=== PATIENT | female | born 1955 | race Caucasian/White ===

== ENCOUNTER 2017-11-08 10:09 | Inpatient (IN) ==
--- NOTE | 2017-11-08 10:47 | Emergency Department Note ---
Disposition Clinical Impression: Acute blood loss anemia Anemia Qualifiers: Anemia type: other cause GI bleed Qualifiers: GI bleed type/associated pathology: unspecified gastrointestinal hemorrhage type Qualified Code(s): K92.2 - Gastrointestinal hemorrhage, unspecified Disposition: Still a Patient Condition: Fair General Adult HPI - General Chief complaint: ED Recheck/Abnormal Lab/Rx Stated complaint: "blood and iron is low" Time Seen by Provider: 11/08/17 10:35 - History of Present Illness HPI Narrative: 62 YO F here for iron deficiency anemia with history of PE and RA on immunosuppressant. Yesterday at her PCP iron was <10 mcg/dL and hemoglobin was 4.7. Diagnosed with iron deficiency anemia 5 years ago and was worked up with multiple colonoscopies and endoscopies, saw a rheumotologist. Cause of iron deficiency anemia never found. She cannot tolerate PO iron so she has periodic iron infusions. Denies blood in stool or hematuria. Feels weak with exertion. No fever, CP, diarrhea. States has dark stools. Is on leflunomide for RA and for it's blood thinning properities. Onset (ago): day(s) Pain Scale: 0 - Related Data Home Medications Medication Instructions Recorded Confirmed Ascorbic Acid [Vitamin C] 1,000 mg PO DAILY 06/10/15 11/08/17 Beclomethasone Diprop 80mcg [Qvar 2 puff IH DAILY 06/10/15 11/08/17 80 mcg] Calcium Carbonate/Vitamin D3 2 tab PO DAILY 06/10/15 11/08/17 [Calcium 500 + D Tablet] Cholecalciferol (Vitamin D3) 4,000 unit PO DAILY 06/10/15 11/08/17 [Vitamin D] Pediatric Multivitamin Comb#30 1 each PO DAILY 06/10/15 11/08/17 [Gummies Children Multivitamin] Fexofenadine/Pseudoephedrine 1 tab PO DAILY 12/16/15 11/08/17 [Annia-D 24 Hour Tablet] Fluticasone Propionate Nasal 1 spr NS DAILY 12/16/15 11/08/17 [Flonase] Leflunomide [Arava] 10 mg PO QDPC 10/08/16 11/08/17 Allergies Allergy/AdvReac Type Severity Reaction Status Date / Time ciprofloxacin [From Cipro] Allergy Rash Verified 12/03/16 09:45 levofloxacin [From Levaquin] Allergy Palpitation Verified 12/03/16 09:45 s All systems ED: reviewed and negative except as stated. Constitutional: Denies: fever, chills, weakness, weight change, night sweats Cardiovascular: Denies: chest pain, palpitations Respiratory: Denies: cough, dyspnea Gastrointestinal: Denies: abdominal pain, nausea, vomiting, diarrhea Genitourinary: Denies: urgency, dysuria, hematuria Musculoskeletal: Reports: arthralgia (has rhematoid arthitis on immunosuppressant) Endocrine: Reports: fatigue. Denies: heat or cold intolerance, polydipsia, polyuria Past Medical History - Social History Alcohol use: Reports: none Drug use: Reports: none Physical Exam - General Limitations: no limitations - Head Head exam: atraumatic, normocephalic - Eye Eye exam: Present: other (Skin pale conjunctiva) - Chest Chest inspection: Present: normal inspection, symmetric chest wall rise - Respiratory Respiratory exam: Present: normal lung sounds bilaterally. 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 Absent: black stool, bloody stool, fecal impaction, hemorrhoids, mass, tenderness - Neurological Exam Neurological exam: Present: alert, oriented X3 - Psychiatric Psychiatric exam: Present: normal affect, normal mood, depressed - Skin Skin exam: Present: warm, dry, pallor Course Course Narrative: 62 YO female with history of iron deficiency anemia with HgB 4.7 yesterday. Ordered type and cross and and give blood transfusion. Performed rectal exam and will submit FOBT. CBC and CMP ordered. - Reevaluation(s) Reevaluation #1: FOBT shows blood. Hgb today is 4.4. Dr. Medley spoke to Dr. Felipe - [place] to admit. Vital Signs Temperature 98.7 F 11/08/17 10:12 Pulse Rate 101 11/08/17 10:12 Respiratory Rate 20 11/08/17 10:12 Blood Pressure 156/76 11/08/17 10:12 O2 Sat by Pulse Oximetry 100 11/08/17 10:12 Temperature 99.2 F 11/08/17 20:59 Pulse Rate 78 11/08/17 20:59 Respiratory Rate 18 11/08/17 20:59 Blood Pressure 134/70 11/08/17 20:59 O2 Sat by Pulse Oximetry 100 11/08/17 18:28 Oxygen Delivery Oxygen Delivery Room Air Medical Decision Making - Lab Data Result diagrams: 11/08/17 17:53 11/08/17 10:53 Lab Results 11/08/17 11/08/17 11/08/17 Range/Units 10:53 10:53 10:53 WBC 4.7 (4.3-11.1) K/mcL RBC 2.02 L (3.82-4.97) M/mcL Hgb 4.4 L* (11.5-15.4) g/dL Hct 15.0 L* (35.3-44.9) % MCV 74.3 L (83.0-100.0) fL MCH 21.8 L (28.0-33.3) pg MCHC 29.3 L (31.6-35.5) g/dL RDW 16.6 H (11.5-14.5) % Plt Count 345 (140-400) K/mcL MPV 10.5 (9.4-12.4) fL Immature Gran % 0.2 (0-4) % Seg Neutrophils % 68.5 % Lymphocytes % 16.9 % Monocytes % 12.1 % Eosinophils % 1.9 % Basophils % 0.4 % Neutrophils # 3.2 (1.6-8.9) K/mcL Lymphocytes # 0.8 (0.6-4.6) K/mcL Monocytes # 0.6 (0.0-1.3) K/mcL Eosinophils # 0.1 (0.0-0.6) K/mcL Basophils # 0.0 (0.0-0.2) K/mcL PT 11.8 (9.4-12.1) Seconds INR 1.0 APTT 27.2 (26.0-36.0) Seconds Sodium 129 L (136-145) mEq/L Potassium 3.6 (3.5-5.1) mEq/L Chloride 106 (98-107) mEq/L Carbon Dioxide 25 (23-29) mEq/L BUN 11 (8-23) mg/dL Creatinine 0.43 L (0.60-1.20) mg/dL Est GFR ( Amer) > 60 (> 60) Est GFR (Non-Af Amer) > 60 (> 60) BUN/Creatinine Ratio 26 (6-26) Glucose 118 H (70-105) mg/dL Calculated Osmolality 268 L (280-300) Calcium 8.8 (8.6-10.3) mg/dL Iron 14 L (50-170) mcg/dL % Saturation 4 L (15-50) % Transferrin 279 (203-362) mg/dL Ferritin < 8 L (10-120) ng/mL Total Bilirubin 0.5 (0.3-1.0) mg/dL AST 23 (13-39) Units/L ALT 18 (7-52) Units/L Alkaline Phosphatase 67 (34-104) Units/L Serum Total Protein 6.4 (6.4-8.9) g/dL Albumin 3.6 (3.5-5.7) g/dL Globulin 2.8 (2.4-3.5) g/dL Albumin/Globulin Ratio 1.3 (1.1-2.2) Stool Occult Bld Scrn (Negative) Blood Type Antibody Screen Crossmatch 11/08/17 11/08/17 Range/Units 11:05 11:16 WBC (4.3-11.1) K/mcL RBC (3.82-4.97) M/mcL Hgb (11.5-15.4) g/dL Hct (35.3-44.9) % MCV (83.0-100.0) fL MCH (28.0-33.3) pg MCHC (31.6-35.5) g/dL RDW (11.5-14.5) % Plt Count (140-400) K/mcL MPV (9.4-12.4) fL Immature Gran % (0-4) % Seg Neutrophils % % Lymphocytes % % Monocytes % % Eosinophils % % Basophils % % Neutrophils # (1.6-8.9) K/mcL Lymphocytes # (0.6-4.6) K/mcL Monocytes # (0.0-1.3) K/mcL Eosinophils # (0.0-0.6) K/mcL Basophils # (0.0-0.2) K/mcL PT (9.4-12.1) Seconds INR APTT (26.0-36.0) Seconds Sodium (136-145) mEq/L Potassium (3.5-5.1) mEq/L Chloride (98-107) mEq/L Carbon Dioxide (23-29) mEq/L BUN (8-23) mg/dL Creatinine (0.60-1.20) mg/dL Est GFR ( Amer) (> 60) Est GFR (Non-Af Amer) (> 60) BUN/Creatinine Ratio (6-26) Glucose (70-105) mg/dL Calculated Osmolality (280-300) Calcium (8.6-10.3) mg/dL Iron (50-170) mcg/dL % Saturation (15-50) % Transferrin (203-362) mg/dL Ferritin (10-120) ng/mL Total Bilirubin (0.3-1.0) mg/dL AST (13-39) Units/L ALT (7-52) Units/L Alkaline Phosphatase (34-104) Units/L Serum Total Protein (6.4-8.9) g/dL Albumin (3.5-5.7) g/dL Globulin (2.4-3.5) g/dL Albumin/Globulin Ratio (1.1-2.2) Stool Occult Bld Scrn Positive A (Negative) Blood Type O POSITIVE Antibody Screen NEGATIVE Crossmatch See Detail
[2017-11-08 11:17] LABS: Basophils % 0.4 %; Mean Corpuscular HGB Conc 29.3 g/dL (31.6-35.5)
[2017-11-08 11:18] LABS: Eosinophils # 0.1 K/mcL (0.0-0.6); Eosinophils % 1.9 %; Immature Granulocytes % 0.2 % (0-4); Lymphocytes # 0.8 K/mcL (0.6-4.6); Lymphocytes % 16.9 %; Mean Corpuscular Hemoglobin 21.8 pg (28.0-33.3); Mean Corpuscular Volume 74.3 fL (83.0-100.0); Mean Platelet Volume 10.5 fL (9.4-12.4); Monocytes # 0.6 K/mcL (0.0-1.3); Monocytes % 12.1 %; Neutrophils # 3.2 K/mcL (1.6-8.9); Platelet Count 345 K/mcL (140-400); Red Blood Count 2.02 M/mcL (3.82-4.97); Red Cell Distribution Width 16.6 % (11.5-14.5); Segmented Neutrophils % 68.5 %
[2017-11-08 11:26] LABS: Alanine Aminotransferase 18 Units/L (7-52); Albumin 3.6 g/dL (3.5-5.7); Albumin/Globulin Ratio 1.3 (1.1-2.2); Alkaline Phosphatase 67 Units/L (34-104); Aspartate Amino Transferase 23 Units/L (13-39); BUN/Creatinine Ratio 26 (6-26); Bilirubin,Total 0.5 mg/dL (0.3-1.0); Blood Urea Nitrogen 11 mg/dL (8-23); Calcium 8.8 mg/dL (8.6-10.3); Carbon Dioxide 25 mEq/L (23-29); Chloride 106 mEq/L (98-107); Globulin 2.8 g/dL (2.4-3.5); Glucose 118 mg/dL (70-105); Osmolality,Calculated 268 (280-300); Potassium 3.6 mEq/L (3.5-5.1); Sodium 129 mEq/L (136-145); Total Protein 6.4 g/dL (6.4-8.9); eGFR For Non-African Americans > 60 (> 60)
[2017-11-08 11:31] LABS: Hemoglobin 4.4 g/dL (11.5-15.4)
[2017-11-08] MEDS ORDERED: Pantoprazole 40 MG VIAL IVP ONE (11:34)
--- NOTE | 2017-11-08 11:44 | Emergency Department Note ---
Disposition Clinical Impression: Anemia, GI bleed Disposition: Still a Patient Condition: Fair Referrals: Trevor Christopher MD [Primary Care Provider] - Forms: ED Satisfaction Letter General Adult HPI - General Chief complaint: ED Recheck/Abnormal Lab/Rx Stated complaint: "blood and iron is low" Time Seen by Provider: 11/08/17 10:35 Source: patient Limitations: no limitations - History of Present Illness Pain Scale: 0 - Related Data Home Medications Medication Instructions Recorded Confirmed Ascorbic Acid [Vitamin C] 1,000 mg PO DAILY 06/10/15 11/08/17 Beclomethasone Diprop 80mcg [Qvar 2 puff IH DAILY 06/10/15 11/08/17 80 mcg] Calcium Carbonate/Vitamin D3 2 tab PO DAILY 06/10/15 11/08/17 [Calcium 500 + D Tablet] Cholecalciferol (Vitamin D3) 4,000 unit PO DAILY 06/10/15 11/08/17 [Vitamin D] Pediatric Multivitamin Comb#30 1 each PO DAILY 06/10/15 11/08/17 [Gummies Children Multivitamin] Fexofenadine/Pseudoephedrine 1 tab PO DAILY 12/16/15 11/08/17 [Annia-D 24 Hour Tablet] Fluticasone Propionate Nasal 1 spr NS DAILY 12/16/15 11/08/17 [Flonase] Leflunomide [Arava] 10 mg PO QDPC 10/08/16 11/08/17 Allergies Allergy/AdvReac Type Severity Reaction Status Date / Time ciprofloxacin [From Cipro] Allergy Rash Verified 12/03/16 09:45 levofloxacin [From Levaquin] Allergy Palpitation Verified 12/03/16 09:45 s Constitutional: Denies: fever, chills, weakness, weight change, night sweats Cardiovascular: Denies: chest pain, palpitations Respiratory: Denies: cough, dyspnea Gastrointestinal: Denies: abdominal pain, nausea, vomiting, diarrhea Genitourinary: Denies: urgency, dysuria, hematuria Musculoskeletal: Reports: arthralgia (has rhematoid arthitis on immunosuppressant) Endocrine: Reports: fatigue. Denies: heat or cold intolerance, polydipsia, polyuria Past Medical History - Past Medical History Medical history: Reports: arthritis, asthma, other Psychiatric history: Reports: no psych history SPRIGGER history: Reports: no SPRIGGER history - Social History Smoking Status: Never smoker Smokeless Tobacco Status: No Alcohol use: Reports: none Drug use: Reports: none Physical Exam - General Limitations: no limitations General appearance: alert, in no apparent distress Course Vital Signs Temperature 98.7 F 11/08/17 10:12 Pulse Rate 101 11/08/17 10:12 Respiratory Rate 20 11/08/17 10:12 Blood Pressure 156/76 11/08/17 10:12 O2 Sat by Pulse Oximetry 100 11/08/17 10:12 Temperature 99.4 F 11/08/17 12:26 Pulse Rate 79 11/08/17 13:10 Respiratory Rate 22 11/08/17 13:10 Blood Pressure 134/56 11/08/17 13:10 O2 Sat by Pulse Oximetry 98 11/08/17 13:10 Oxygen Delivery Oxygen Delivery Room Air Medical Decision Making - Lab Data Result diagrams: 11/08/17 10:53 11/08/17 10:53 Lab Results 11/08/17 11/08/17 11/08/17 Range/Units 10:53 10:53 10:53 WBC 4.7 (4.3-11.1) K/mcL RBC 2.02 L (3.82-4.97) M/mcL Hgb 4.4 L* (11.5-15.4) g/dL Hct 15.0 L* (35.3-44.9) % MCV 74.3 L (83.0-100.0) fL MCH 21.8 L (28.0-33.3) pg MCHC 29.3 L (31.6-35.5) g/dL RDW 16.6 H (11.5-14.5) % Plt Count 345 (140-400) K/mcL MPV 10.5 (9.4-12.4) fL Immature Gran % 0.2 (0-4) % Seg Neutrophils % 68.5 % Lymphocytes % 16.9 % Monocytes % 12.1 % Eosinophils % 1.9 % Basophils % 0.4 % Neutrophils # 3.2 (1.6-8.9) K/mcL Lymphocytes # 0.8 (0.6-4.6) K/mcL Monocytes # 0.6 (0.0-1.3) K/mcL Eosinophils # 0.1 (0.0-0.6) K/mcL Basophils # 0.0 (0.0-0.2) K/mcL PT 11.8 (9.4-12.1) Seconds INR 1.0 APTT 27.2 (26.0-36.0) Seconds Sodium 129 L (136-145) mEq/L Potassium 3.6 (3.5-5.1) mEq/L Chloride 106 (98-107) mEq/L Carbon Dioxide 25 (23-29) mEq/L BUN 11 (8-23) mg/dL Creatinine 0.43 L (0.60-1.20) mg/dL Est GFR ( Amer) > 60 (> 60) Est GFR (Non-Af Amer) > 60 (> 60) BUN/Creatinine Ratio 26 (6-26) Glucose 118 H (70-105) mg/dL Calculated Osmolality 268 L (280-300) Calcium 8.8 (8.6-10.3) mg/dL Iron 14 L (50-170) mcg/dL % Saturation 4 L (15-50) % Transferrin 279 (203-362) mg/dL Total Bilirubin 0.5 (0.3-1.0) mg/dL AST 23 (13-39) Units/L ALT 18 (7-52) Units/L Alkaline Phosphatase 67 (34-104) Units/L Serum Total Protein 6.4 (6.4-8.9) g/dL Albumin 3.6 (3.5-5.7) g/dL Globulin 2.8 (2.4-3.5) g/dL Albumin/Globulin Ratio 1.3 (1.1-2.2) Stool Occult Bld Scrn (Negative) Blood Type Antibody Screen Crossmatch 11/08/17 11/08/17 Range/Units 11:05 11:16 WBC (4.3-11.1) K/mcL RBC (3.82-4.97) M/mcL Hgb (11.5-15.4) g/dL Hct (35.3-44.9) % MCV (83.0-100.0) fL MCH (28.0-33.3) pg MCHC (31.6-35.5) g/dL RDW (11.5-14.5) % Plt Count (140-400) K/mcL MPV (9.4-12.4) fL Immature Gran % (0-4) % Seg Neutrophils % % Lymphocytes % % Monocytes % % Eosinophils % % Basophils % % Neutrophils # (1.6-8.9) K/mcL Lymphocytes # (0.6-4.6) K/mcL Monocytes # (0.0-1.3) K/mcL Eosinophils # (0.0-0.6) K/mcL Basophils # (0.0-0.2) K/mcL PT (9.4-12.1) Seconds INR APTT (26.0-36.0) Seconds Sodium (136-145) mEq/L Potassium (3.5-5.1) mEq/L Chloride (98-107) mEq/L Carbon Dioxide (23-29) mEq/L BUN (8-23) mg/dL Creatinine (0.60-1.20) mg/dL Est GFR ( Amer) (> 60) Est GFR (Non-Af Amer) (> 60) BUN/Creatinine Ratio (6-26) Glucose (70-105) mg/dL Calculated Osmolality (280-300) Calcium (8.6-10.3) mg/dL Iron (50-170) mcg/dL % Saturation (15-50) % Transferrin (203-362) mg/dL Total Bilirubin (0.3-1.0) mg/dL AST (13-39) Units/L ALT (7-52) Units/L Alkaline Phosphatase (34-104) Units/L Serum Total Protein (6.4-8.9) g/dL Albumin (3.5-5.7) g/dL Globulin (2.4-3.5) g/dL Albumin/Globulin Ratio (1.1-2.2) Stool Occult Bld Scrn Positive A (Negative) Blood Type O POSITIVE Antibody Screen NEGATIVE Crossmatch See Detail Critical Care Time Critical Care Time: Yes Total Critical Care Time: 45 Attestation: Critical care performed: Time is exclusive of separately billable procedures. Time includes: direct patient care, patient reassessment, coordination of patient care, interpretation of data (laboratory data, radiology data, and respiratory data), review of patient's medical records, medical consultation and documentation of patient care. Procedures included in critical care time: Procedures excluded from critical care time: Attestation Statement - Attestation Attestation: I examined this patient and my medical decision-making was reviewed with the Resident Physician. I agree with the documented findings, disposition and treatment plan as described except to the extent set forth below. Patient presents to the ED with a chief complaint of low hemoglobin. Patient had outpatient lab studies done that showed a hemoglobin of 4 and she was called to come to the ED. Patient arrives requesting iron transfusion. Patient states she has a history of the same. She has had multiple scopes the last of which was in 2013. They have never shown anything. Admits to dark tarry stool. Denies any bright red blood. Denies any epigastric pain. Denies any history of ulcers. Patient states she used to be on Xarelto which she is not taking it as one of her rheumatoid medications also acts as a blood thinner. (Leflunomide). On examination she is pale. Sitting up in bed reading a book in no distress. Her abdomen is soft, nontender. Rectal exam showed dark stool. Plan. Hemoccult is positive. He will go was 4.4. Starting transfusion at this time. Starting Protonix. Patient with no abdominal pain. Patient does not need any abdominal imaging at this time. On reexamination she denies any history of liver disease. No history of hepatitis. Denies any alcohol consumption. Patient will be admitted following transfusion. Consultation call to Dr. Felipe for endoscopy. Will admit to medicine. Dr Carlos accepts for admission 1214 CT reviewed. INR 1. Abdomen/Pelvis CT 11/08/17 11:54 IMPRESSION: Bilateral nephrolithiasis without evidence for urinary obstruction or hydronephrosis. Focal hyperdense nodule either abutting or arising from the left collecting system/ureter measuring 2.5 x 1.4 cm. Further evaluation with CT urogram or renal protocol MRI is suggested. Multiple low-attenuation hepatic and renal lesions are most compatible with cysts. D/ / Magdy Ordaz MD / Magdy Ordaz MD Interpreting Provider: Magdy Ordaz MD
[2017-11-08 12:07] LABS: Prothrombin Time 11.8 Seconds (9.4-12.1)
[2017-11-08] MEDS ORDERED: 0.9 % Sodium Chloride 500 ML ONE (12:09)
[2017-11-08 12:10] LABS: Activated Partial Thrombo Time 27.2 Seconds (26.0-36.0)
[2017-11-08] MEDS ORDERED: Naloxone 0.4 MG/ML INJ IVP PRN (12:15)
--- NOTE | 2017-11-08 13:00 | Internal Med History&Physical ---
Date of Encounter: 11/08/17 Time of Encounter: 12:30 Internal Medicine - H&P: HPI Chief complaint: dark stools , referred from PCP for low blood count History of present illness: Ms. Morataya is a 62 year old female with pmh of ovarian cancer, pulmonary emboli for which she was previously on xarelto, rheumatoid arthritis, past history of GI bleed presenting with complaints of I was sent to the ER by my PCP because my blood count was low. Patient notes over the last couple of weeks , she has been having dark stools intermittently, and this was followed by easy fatigability and shortness of breath as well as a craving for vegetables, which she says is typical of being anemic for her. She therefore decided to go to her PCP to get her blood count checked. She seh was told her blood count was low and she was instructed to come to the ER. She denies any nausea, vomiting, abdominal pain or any other acute symptoms. In the ER hemoglobin was noted to be 4.4 and she was given one dose of protonix 40mg IV and is being transfused 2 units PRBC. Surgery (Dr lynch) has also been consulted for endoscopy Past Med Surg Social Fam HX - Past Medical History Medical history: arthritis, asthma, other Additional medical history: anemia Psychiatric history: no psych history - Social History Smoking Status: Never smoker Smokeless Tobacco Status: No Alcohol use: none Drug use: none Internal Medicine - H&P: Meds Ascorbic Acid [Vitamin C] 1,000 mg PO DAILY 06/10/15 [History] Beclomethasone Diprop 80mcg [Qvar 80 mcg] 2 puff IH DAILY 06/10/15 [History] Calcium Carbonate/Vitamin D3 [Calcium 500 + D Tablet] 2 tab PO DAILY 06/10/15 [ History] Cholecalciferol (Vitamin D3) [Vitamin D] 4,000 unit PO DAILY 06/10/15 [History] Pediatric Multivitamin Comb#30 [Gummies Children Multivitamin] 1 each PO DAILY 06/10/15 [History] Fexofenadine/Pseudoephedrine [Annia-D 24 Hour Tablet] 1 tab PO DAILY 12/16/15 [History] Fluticasone Propionate Nasal [Flonase] 1 spr NS DAILY 12/16/15 [History] Leflunomide [Arava] 10 mg PO QDPC 10/08/16 [History] 3 Allergy/AdvReac Type Severity Reaction Status Date / Time ciprofloxacin [From Cipro] Allergy Rash Verified 12/03/16 09:45 levofloxacin [From Levaquin] Allergy Palpitation Verified 12/03/16 09:45 s All Systems PM: A 10-system review of systems was performed and is negative for pertinent findings except as documented above in the HPI. - Constitutional Constitutional: as per HPI, fatigue, lethargy, malaise, no chills, no fever(s), no night sweats - EENT Eyes: no change in vision, no discharge, no pain, no photophobia Ears: no ear discharge, no ear pain, no tinnitus Nose, mouth and throat: no dysphagia, no nasal discharge, no neck pain, no sore throat - Cardiovascular Cardiovascular ROS IM: dyspnea, no chest pain, no diaphoresis, no lightheadedness, no palpitations, no syncope - Respiratory Respiratory: dyspnea, dyspnea on exertion, no cough, no wheezing, no excessive phlegm production - Gastrointestinal Gastrointestinal: melena, no abdominal pain, no diarrhea, no hematemesis, no hematochezia, no nausea, no vomiting - Genitourinary Genitourinary: no change in urinary stream, no dysuria, no flank pain, no hematuria - Musculoskeletal Musculoskeletal ROS IM: no numbness, no tingling - Integumentary Integumentary IM: no rash, no unusual bruising - Neurological Neurological ROS: no confusion, no convulsions, no focal weakness, no numbness, no tingling, no tremor(s) - Hematologic/Lymphatic Hematologic/Lymphatic: no easy bruising - Constitutional Vitals: Temp Pulse Resp BP Pulse Ox 99.4 F 81 22 134/67 96 11/08/17 12:26 11/08/17 12:26 11/08/17 12:26 11/08/17 12:26 11/08/17 12:20 Exam: NAD - Head Head exam: Present: atraumatic, normocephalic - Eye Eye exam: Present: PERRL, conjuntiva pink, sclera anicteric Pupils: Present: PERRL - Neck Neck exam general surgery: Present: supple, trachea midline. Absent: lymphadenopathy - Respiratory Respiratory exam: Present: CTAB. Absent: accessory muscle use, rales, rhonchi, wheezes - Cardiovascular Cardiovascular exam: Present: RRR, +S1, +S2. Absent: diastolic murmur, gallop, rubs, systolic murmur - GI/Abdominal GI/Abdominal exam: Present: normal bowel sounds, soft, no peritoneal signs. Absent: distended, tenderness - Extremities Exam Extremities exam: Present: warm, radial pulses palpable and symmetrical. Absent : calf tenderness, cyanotic, pedal edema - Neurological Exam Neurological exam: Present: CN II-XII intact, oriented X3, no focal deficits. Absent: pronater drift, facial droop, speech deficit - Skin Skin exam: Present: dry, intact Internal Med - H&P Results - Labs CBC & Chem 7: 11/08/17 17:53 11/08/17 10:53 Labs: Short CBC 11/08/17 Range/Units 10:53 WBC 4.7 (4.3-11.1) K/mcL Hgb 4.4 L* (11.5-15.4) g/dL Hct 15.0 L* (35.3-44.9) % Plt Count 345 (140-400) K/mcL Neutrophils # 3.2 (1.6-8.9) K/mcL BMP 11/08/17 10:53 Sodium 129 L Potassium 3.6 Chloride 106 Carbon Dioxide 25 BUN 11 Creatinine 0.43 L Glucose 118 H Calcium 8.8 Liver Function 11/08/17 Range/Units 10:53 Total Bilirubin 0.5 (0.3-1.0) mg/dL AST 23 (13-39) Units/L ALT 18 (7-52) Units/L Alkaline Phosphatase 67 (34-104) Units/L Albumin 3.6 (3.5-5.7) g/dL - Assessment and plan (1) Acute GI bleeding Current Visit: Yes Status: Acute Assessment and plan: Pt has had dark stools intermittently for a couple of months now. Stool occult blood positive. Likely 2/2 to acute upper GI bleed. Denies being on NSAIDS or blood thinners. Still uses xarelto occasionally as travel prophylaxis (due to history of PE) but reports her last use was in August INR WNL. Will transfuse 4 units of PRBC. Receiving 2 in the ER. Follow up iron studies Started on protonix drip. CBC q8hrs, IV fluids (2) Symptomatic anemia Current Visit: Yes Status: Acute Assessment and plan: Symptomatic anemia likely from acute blood loss with iron deficiency Follow up iron profile. Transfure 4 unit PRBC. monitor CBC (3) Ovarian cancer Current Visit: Yes Status: Acute Assessment and plan: Stable Qualifiers: Laterality: unspecified laterality Qualified Code(s): C56.9 - Malignant neoplasm of unspecified ovary (4) Hyponatremia Current Visit: Yes Status: Acute Assessment and plan: Will give IV fluids with normal saline (5) Rheumatoid arthritis Current Visit: Yes Status: Acute Assessment and plan: Continue leflunomide Qualifiers: Qualified Code(s): M06.9 - Rheumatoid arthritis, unspecified (6) DVT prophylaxis Current Visit: Yes Status: Acute Assessment and plan: scds - Time Spent With Patient Total time spent is greater than 50% in coordination of care (as documented) at patient's floor/unit and/or counseling patient:
[2017-11-08 13:07] LABS: % Iron Saturation 4 % (15-50); Iron 14 mcg/dL (50-170); Transferrin 279 mg/dL (203-362)
[2017-11-08 13:49] LABS: Ferritin < 8 ng/mL (10-120)
[2017-11-08] MEDS ORDERED: 0.9 % Sodium Chloride 250 ML ONE ×3 (14:46→22:31)
[2017-11-08] MEDS: 0.9 % Sodium Chloride 1,000 ML IVC SCH (16:18)
[2017-11-08] MEDS: Pantoprazole 40 MG in 0.9 % Sodium Chloride Mini Bag 100 ML IVC SCH ×2 (16:18→21:26)
[2017-11-08 18:32] LABS: Basophils % 0.8 %; Eosinophils # 0.2 K/mcL (0.0-0.6); Immature Granulocytes % 0.2 % (0-4); Lymphocytes # 1.4 K/mcL (0.6-4.6); Lymphocytes % 27.7 %; Mean Corpuscular Hemoglobin 24.1 pg (28.0-33.3); Mean Corpuscular Volume 77.8 fL (83.0-100.0); Mean Platelet Volume 10.9 fL (9.4-12.4); Monocytes # 0.7 K/mcL (0.0-1.3); Monocytes % 13.3 %; Neutrophils # 2.8 K/mcL (1.6-8.9); Platelet Count 328 K/mcL (140-400); Red Blood Count 2.57 M/mcL (3.82-4.97); Red Cell Distribution Width 17.4 % (11.5-14.5)
[2017-11-08 18:33] LABS: Hemoglobin 6.2 g/dL (11.5-15.4)
[2017-11-09 00:44] LABS: Basophils # 0.1 K/mcL (0.0-0.2); Basophils % 1.1 %; Eosinophils # 0.3 K/mcL (0.0-0.6); Eosinophils % 4.8 %; Hematocrit 23.2 % (35.3-44.9); Hemoglobin 7.4 g/dL (11.5-15.4); Immature Granulocytes % 0.4 % (0-4); Lymphocytes # 1.3 K/mcL (0.6-4.6); Lymphocytes % 23.5 %; Mean Corpuscular HGB Conc 31.9 g/dL (31.6-35.5); Mean Corpuscular Hemoglobin 25.4 pg (28.0-33.3); Mean Corpuscular Volume 79.7 fL (83.0-100.0); Mean Platelet Volume 10.8 fL (9.4-12.4); Monocytes # 0.7 K/mcL (0.0-1.3); Monocytes % 12.5 %; Neutrophils # 3.1 K/mcL (1.6-8.9); Platelet Count 287 K/mcL (140-400); Red Blood Count 2.91 M/mcL (3.82-4.97); Red Cell Distribution Width 17.8 % (11.5-14.5); Segmented Neutrophils % 57.7 %
[2017-11-09 00:49] LABS: INR 1.1; Prothrombin Time 12.7 Seconds (9.4-12.1)
[2017-11-09 00:55] LABS: Blood Urea Nitrogen 10 mg/dL (8-23); Carbon Dioxide 26 mEq/L (23-29); Chloride 107 mEq/L (98-107); Potassium 3.7 mEq/L (3.5-5.1); Sodium 136 mEq/L (136-145)
[2017-11-09 00:56] LABS: BUN/Creatinine Ratio 27 (6-26); Calcium 8.4 mg/dL (8.6-10.3); Glucose 101 mg/dL (70-105); Osmolality,Calculated 281 (280-300); Phosphorous 3.1 mg/dL (2.7-4.5); eGFR For Non-African Americans > 60 (> 60)
[2017-11-09] MEDS: Pantoprazole 40 MG in 0.9 % Sodium Chloride Mini Bag 100 ML IVC SCH (02:47)
[2017-11-09] MEDS: 0.9 % Sodium Chloride 1,000 ML IVC SCH (06:36)
[2017-11-09] MEDS: Beclomethasone 80mcg MDI IH SCH (08:01)
[2017-11-09 08:32] LABS: Basophils # 0.1 K/mcL (0.0-0.2); Basophils % 1.1 %; Eosinophils # 0.2 K/mcL (0.0-0.6); Eosinophils % 3.6 %; Hematocrit 23.3 % (35.3-44.9); Hemoglobin 7.5 g/dL (11.5-15.4); Immature Granulocytes % 0.4 % (0-4); Lymphocytes # 0.9 K/mcL (0.6-4.6); Lymphocytes % 16.2 %; Mean Corpuscular HGB Conc 32.2 g/dL (31.6-35.5); Mean Corpuscular Hemoglobin 25.1 pg (28.0-33.3); Mean Corpuscular Volume 77.9 fL (83.0-100.0); Mean Platelet Volume 10.9 fL (9.4-12.4); Monocytes # 0.6 K/mcL (0.0-1.3); Monocytes % 10.8 %; Neutrophils # 3.8 K/mcL (1.6-8.9); Platelet Count 307 K/mcL (140-400); Red Blood Count 2.99 M/mcL (3.82-4.97); Red Cell Distribution Width 17.6 % (11.5-14.5); Segmented Neutrophils % 67.9 %
--- NOTE | 2017-11-09 13:17 | Internal Med Progress Note ---
Hospitalist Progress Note - Encounter Date of Encounter: 11/09/17 Time of Encounter: 13:17 - Subjective Interval History: Patient seen and examined at bedside. Patient had no acute events overnight. Patient received 4 units of packed red blood cells.. Patient states that she is feeling fine but never really felt that bad. Patient was only exercising shortness of breath with exertion for the past 2 weeks and denies any melena, hematochezia, nausea. Patient has been taking NSAIDs occasionally recently. Patient states that she has had many upper endoscopies and colonoscopies and capsule studies and has never found any source of bleeding. Currently the patient states she feels fine and she is just thirsty. Patient states that her pulmonary emboli were years ago and has been off xarelto and any blood thinners since August 2016. - Exam Vitals: Temp Pulse Resp BP Pulse Ox 98.8 F 78 18 147/78 96 11/09/17 11:36 11/09/17 11:36 11/09/17 11:36 11/09/17 11:36 11/09/17 11:36 Exam: Constitutional: No acute distress, Alert Psych: AAO x 3 HEENT: NCAT, EOMI, conjunctiva with no significant pallor Neck: supple, no JVD Cardio: regular rate and rhythm, +s1s2, no murmurs/rubs/gallops, no JVD Resp: clear to ascultation bilaterally, no wheezes/rales/ronchi Abd: soft, non tender/non distended, positive bowel sounds, no gaurding/reboud/ ridgitity Extremities: Significant lower extremity edema that is chronic. Neuro: no focal deficits appreciated - Assessment and Plan (1) Symptomatic anemia Current Visit: Yes Status: Acute Assessment and Plan: Symptomatic anemia likely from chronic blood loss with iron deficiency -Iron studies consistent with severe iron deficiency -Has had many negative upper endoscopies and colonoscopies and capsule studies. -Status post 4 units transfusion the PRBCs -Patient no longer having shortness of breath -Trend hemoglobin -If hemoglobin at 1 PM stable will start clear liquid diet -surgery consulted for evaluation for endoscopy (2) Acute GI bleeding Current Visit: Yes Status: Acute Assessment and Plan: Pt has had dark stools intermittently for a couple of months now. Stool occult blood positive. -Likely 2/2 to acute upper GI bleed. -occasional NSAIDS recentlyor blood thinners -INR WNL. -s/p 4 units of PRBC. -iron studies with significant iron deficency -change protonix gtt to bid -cbc trending -hemoglobin improving up to 7.5 and no longer sob -Many negative workups for GI bleeding -Due to receiving 4 units of packed red blood cells will likely wait on IV iron infusion for at least 24-48 hours (3) Ovarian cancer Current Visit: Yes Status: Acute Assessment and Plan: -Stable -per hx in 1980s (4) Hyponatremia Current Visit: Yes Status: Acute Assessment and Plan: -resolved with IVF (5) Rheumatoid arthritis Current Visit: Yes Status: Acute Assessment and Plan: Continue leflunomide (6) DVT prophylaxis Current Visit: Yes Status: Acute Assessment and Plan: scds - Summary of Assessment and Plan Summary of Assessment and Plan: SCDs - Time Spent with Patient Total time spent is greater than 50% in coordination of care (as documented) at patient's floor/unit and/or counseling patient: 25 - 35 minutes Plan of Care Discussed with: patient Internal Medicine: Result - Labs CBC & Chem 7: 11/09/17 08:07 11/09/17 00:25 Labs: Short CBC 11/08/17 11/09/17 11/09/17 Range/Units 17:53 00:25 08:07 WBC 5.0 5.4 5.6 (4.3-11.1) K/mcL Hgb 6.2 L D 7.4 L 7.5 L (11.5-15.4) g/dL Hct 20.0 L 23.2 L 23.3 L (35.3-44.9) % Plt Count 328 287 307 (140-400) K/mcL Neutrophils # 2.8 3.1 3.8 (1.6-8.9) K/mcL BMP 11/09/17 00:25 Sodium 136 Potassium 3.7 Chloride 107 Carbon Dioxide 26 BUN 10 Creatinine 0.37 L Glucose 101 Calcium 8.4 L - ABG Interpretation ABG results: PT/INR, D-dimer PT 12.7 Seconds (9.4-12.1) H 11/09/17 00:25 Consult Discharge Plan - Plan Referrals: Trevor Christopher MD [Primary Care Provider] - (3) Ovarian cancer Qualifiers: Laterality: unspecified laterality Qualified Code(s): C56.9 - Malignant neoplasm of unspecified ovary (5) Rheumatoid arthritis Qualifiers: Rheumatoid arthritis location: unspecified site
[2017-11-09 14:12] LABS: Hematocrit 24.3 % (35.3-44.9); Hemoglobin 7.8 g/dL (11.5-15.4)
--- NOTE | 2017-11-09 15:21 | General Surgery Consult Note ---
Date of Encounter: 11/09/17 Time of Encounter: 15:10 History of Present Illness Reason for consult: other (recurrent anemia) Requesting physician: Ayaka Valero See History of present illness: General Surgery - Delayed dictation 62-year-old female referred for further evaluation to General surgery / GI hemorrhage coverage after presenting to the [facility] ED with recurrent anemia. Blood drawn yesterday demonstrated hemoglobin of 4.7 and iron less than 10 mcg/ dL. The patient was instructed to present to the emergency department for further evaluation/treatment/admission. The patient has described recurrent anemia for which she has undergone repeated upper endoscopies and colonoscopies. (5). Available data from EGD/colonoscopy completed approximately 2 years ago [facility] with no findings to explain her anemia. The patient is not willing to repeat endoscopic evaluation at this time. On presentation to the emergency department, hemoglobin was 4.4, hematocrit 15.4 ; Platelet count 345,000. The patient has since been admitted, transfused with most recent H&H 7.8 / 24.3. It should be noted that platelet count, differential, PT/INR of all remained within normal limits. Sodium is notable low on admission 129 but has corrected to 136, BUN ranging 11-10, creatinine also within normal limits at 0.43 - 0.37. 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 Rheumatoid arthritis and asthma; prior history PE Physical examination is unremarkable except for Hemoccult positive stool Impression recurrent profound anemia of uncertain etiology. It appears to be an anemia of chronic disease as extensive evaluation in the past has failed to demonstrate a specific etiology. The patient's recurrent anemia may be related to her history of mild to poorly differentiated serous cystadenoma/ovarian neoplasm which was treated with chemotherapy with resultant malfunction of her bone marrow. I have discussed this patient's care with Dr Viveros. I am willing to follow along with dodie. No diagnostics (EGD or colonoscopy) planned at this time. Past Med Surg Social Fam HX - Past Medical History Medical history: arthritis, asthma, other Additional medical history: anemia Psychiatric history: no psych history - Social History Smoking Status: Never smoker Smokeless Tobacco Status: No Alcohol use: none Drug use: none Medications and Allergies Ascorbic Acid [Vitamin C] 1,000 mg PO DAILY 06/10/15 [History] Beclomethasone Diprop 80mcg [Qvar 80 mcg] 2 puff IH DAILY 06/10/15 [History] Calcium Carbonate/Vitamin D3 [Calcium 500 + D Tablet] 2 tab PO DAILY 06/10/15 [ History] Cholecalciferol (Vitamin D3) [Vitamin D] 4,000 unit PO DAILY 06/10/15 [History] Pediatric Multivitamin Comb#30 [Gummies Children Multivitamin] 1 each PO DAILY 06/10/15 [History] Fexofenadine/Pseudoephedrine [Annia-D 24 Hour Tablet] 1 tab PO DAILY 12/16/15 [History] Fluticasone Propionate Nasal [Flonase] 1 spr NS DAILY 12/16/15 [History] Leflunomide [Arava] 10 mg PO QDPC 10/08/16 [History] 3 Allergy/AdvReac Type Severity Reaction Status Date / Time ciprofloxacin [From Cipro] Allergy Rash Verified 12/03/16 09:45 levofloxacin [From Levaquin] Allergy Palpitation Verified 12/03/16 09:45 s Review of Systems All systems PM: The remainder of the systems were reviewed and are negative General Surgery Exam Initial Vital Signs Temp Pulse Resp BP Pulse Ox 98.7 F 101 20 156/76 100 11/08/17 10:12 11/08/17 10:12 11/08/17 10:12 11/08/17 10:12 11/08/17 10:12 Exam Initial Vital Signs Temp Pulse Resp BP Pulse Ox 98.7 F 101 20 156/76 100 11/08/17 10:12 11/08/17 10:12 11/08/17 10:12 11/08/17 10:12 11/08/17 10:12 Results - Labs 11/09/17 13:51 11/09/17 00:25 Abnormal lab results RBC 2.99 M/mcL (3.82-4.97) L 11/09/17 08:07 Hgb 7.8 g/dL (11.5-15.4) L 11/09/17 13:51 Hct 24.3 % (35.3-44.9) L 11/09/17 13:51 MCV 77.9 fL (83.0-100.0) L 11/09/17 08:07 MCH 25.1 pg (28.0-33.3) L 11/09/17 08:07 RDW 17.6 % (11.5-14.5) H 11/09/17 08:07 PT 12.7 Seconds (9.4-12.1) H 11/09/17 00:25 Creatinine 0.37 mg/dL (0.60-1.20) L 11/09/17 00:25 BUN/Creatinine Ratio 27 (6-26) H 11/09/17 00:25 Calcium 8.4 mg/dL (8.6-10.3) L 11/09/17 00:25 Iron 14 mcg/dL (50-170) L 11/08/17 10:53 % Saturation 4 % (15-50) L 11/08/17 10:53 Ferritin < 8 ng/mL (10-120) L 11/08/17 10:53 Stool Occult Bld Scrn Positive (Negative) A 11/08/17 11:16 Diabetes panel 11/09/17 Range/Units 00:25 Sodium 136 (136-145) mEq/L Potassium 3.7 (3.5-5.1) mEq/L Chloride 107 (98-107) mEq/L Carbon Dioxide 26 (23-29) mEq/L BUN 10 (8-23) mg/dL Creatinine 0.37 L (0.60-1.20) mg/dL Glucose 101 (70-105) mg/dL Calcium 8.4 L (8.6-10.3) mg/dL Calcium panel 11/09/17 Range/Units 00:25 Calcium 8.4 L (8.6-10.3) mg/dL Phosphorus 3.1 (2.7-4.5) mg/dL Pituitary panel 11/09/17 Range/Units 00:25 Sodium 136 (136-145) mEq/L Potassium 3.7 (3.5-5.1) mEq/L Chloride 107 (98-107) mEq/L Carbon Dioxide 26 (23-29) mEq/L BUN 10 (8-23) mg/dL Creatinine 0.37 L (0.60-1.20) mg/dL Glucose 101 (70-105) mg/dL Calcium 8.4 L (8.6-10.3) mg/dL Adrenal panel 11/09/17 Range/Units 00:25 Sodium 136 (136-145) mEq/L Potassium 3.7 (3.5-5.1) mEq/L Chloride 107 (98-107) mEq/L Carbon Dioxide 26 (23-29) mEq/L BUN 10 (8-23) mg/dL Creatinine 0.37 L (0.60-1.20) mg/dL Glucose 101 (70-105) mg/dL Calcium 8.4 L (8.6-10.3) mg/dL All other labs normal. Consult Discharge Plan - Plan Referrals: Trevor Christopher MD [Primary Care Provider] -
[2017-11-09] MEDS: Pantoprazole 40 MG VIAL IVP SCH (16:14)
[2017-11-09 16:17] LABS: Basophils # 0.1 K/mcL (0.0-0.2); Eosinophils # 0.2 K/mcL (0.0-0.6); Eosinophils % 2.8 %; Hematocrit 25.4 % (35.3-44.9); Hemoglobin 7.9 g/dL (11.5-15.4); Immature Granulocytes % 0.3 % (0-4); Lymphocytes # 0.8 K/mcL (0.6-4.6); Lymphocytes % 13.5 %; Mean Corpuscular HGB Conc 31.1 g/dL (31.6-35.5); Mean Corpuscular Hemoglobin 24.8 pg (28.0-33.3); Mean Corpuscular Volume 79.9 fL (83.0-100.0); Monocytes # 0.6 K/mcL (0.0-1.3); Monocytes % 9.3 %; Neutrophils # 4.5 K/mcL (1.6-8.9); Platelet Count 305 K/mcL (140-400); Red Blood Count 3.18 M/mcL (3.82-4.97); Red Cell Distribution Width 17.6 % (11.5-14.5); Segmented Neutrophils % 73.1 %
[2017-11-09] MEDS: Acetaminophen 325 MG TABLET PO PRN (16:26)
[2017-11-09] MEDS: Fluticasone Propionate Nasal 50 MCG/SPRAY BOTTLE NS SCH (16:27)
--- NOTE | 2017-11-09 17:11 | Electrocardiograph Report ---
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
[2017-11-09] MEDS ORDERED: traMADol 50 MG TABLET PO ONE (20:30)
[2017-11-10 00:45] LABS: Basophils # 0.1 K/mcL (0.0-0.2); Basophils % 0.8 %; Eosinophils # 0.2 K/mcL (0.0-0.6); Eosinophils % 3.7 %; Hematocrit 21.9 % (35.3-44.9); Immature Granulocytes % 0.3 % (0-4); Lymphocytes # 0.9 K/mcL (0.6-4.6); Lymphocytes % 14.8 %; Mean Corpuscular Hemoglobin 24.9 pg (28.0-33.3); Mean Corpuscular Volume 77.9 fL (83.0-100.0); Mean Platelet Volume 10.9 fL (9.4-12.4); Monocytes # 0.6 K/mcL (0.0-1.3); Monocytes % 10.2 %; Neutrophils # 4.3 K/mcL (1.6-8.9); Platelet Count 270 K/mcL (140-400); Red Blood Count 2.81 M/mcL (3.82-4.97); Red Cell Distribution Width 18.1 % (11.5-14.5); Segmented Neutrophils % 70.2 %
[2017-11-10] MEDS: Pantoprazole 40 MG VIAL IVP SCH (05:41)
[2017-11-10 07:34] LABS: Basophils # 0.1 K/mcL (0.0-0.2); Basophils % 0.8 %; Eosinophils # 0.2 K/mcL (0.0-0.6); Eosinophils % 3.3 %; Hematocrit 22.5 % (35.3-44.9); Hemoglobin 7.1 g/dL (11.5-15.4); Immature Granulocytes % 0.2 % (0-4); Lymphocytes # 0.9 K/mcL (0.6-4.6); Lymphocytes % 14.7 %; Mean Corpuscular HGB Conc 31.6 g/dL (31.6-35.5); Mean Corpuscular Hemoglobin 24.5 pg (28.0-33.3); Mean Corpuscular Volume 77.6 fL (83.0-100.0); Mean Platelet Volume 10.4 fL (9.4-12.4); Monocytes # 0.6 K/mcL (0.0-1.3); Monocytes % 10.3 %; Neutrophils # 4.3 K/mcL (1.6-8.9); Platelet Count 260 K/mcL (140-400); Red Cell Distribution Width 18.2 % (11.5-14.5); Segmented Neutrophils % 70.7 %
[2017-11-10 08:04] LABS: Retculocyte # 0.12 M/mcL (0.05-0.10); Reticulocyte % 3.9 % (1.6-2.8)
[2017-11-10] MEDS: Beclomethasone 80mcg MDI IH SCH (08:15)
[2017-11-10] MEDS: Leflunomide [Arava] 10 MG PO SCH ×2 (08:41→08:48)
[2017-11-10] MEDS: Fluticasone Propionate Nasal 50 MCG/SPRAY BOTTLE NS SCH (08:51)
[2017-11-10] MEDS ORDERED: Iron Sucrose Complex 200 MG in 0.9 % Sodium Chloride 100 ML IVPB ONE (09:00)
[2017-11-10] MEDS ORDERED: Simethicone 80 MG TAB.CHEW PO PRN (09:08)
--- NOTE | 2017-11-10 09:08 | Internal Med Progress Note ---
Hospitalist Progress Note - Encounter Date of Encounter: 11/10/17 Time of Encounter: 09:06 - Subjective Interval History: Patient seen and examined at bedside. Patient had no acute events overnight. Patient states that she feels okay but is having a lot of gas today that she thinks is related to milk. Patient denies any chest pain, abdominal pain, vomiting, diarrhea. Patient has been afebrile. Patient admits to belching with intermittent nausea and shortness of breath with exertion which she says is chronic. Spoke to general surgery yesterday due to the patient's many negative workups for any etiology of GI bleeding and in light of her severe iron deficiency will not proceed with additional endoscopy or colonoscopy currently and less she has another significant drop in hemoglobin. I informed the patient that I would give her dose of IV iron today and she is agreeable and says that she has never had any reaction IV iron. - Exam Vitals: Temp Pulse Resp BP Pulse Ox 98.6 F 76 17 152/73 93 11/10/17 06:50 11/10/17 06:50 11/10/17 06:50 11/10/17 06:50 11/10/17 06:50 Exam: Constitutional: No acute distress, Alert Psych: AAO x 3 HEENT: NCAT, EOMI Neck: supple, no JVD Cardio: regular rate and rhythm, +s1s2, no murmurs Resp: clear to ascultation bilaterally, no wheezes/rales/ronchi Abd: soft, non tender/non distended, positive bowel sounds Extremities: Significant lower extremity edema that is chronic. Neuro: no focal deficits appreciated - Assessment and Plan (1) Symptomatic anemia Current Visit: Yes Status: Acute Assessment and Plan: Symptomatic anemia likely from chronic blood loss with iron deficiency -Iron studies consistent with severe iron deficiency -hgb up from 4.4 to 7.9 and last 2 have been 7.0 and now 7.1 -Has had many negative upper endoscopies and colonoscopies and capsule studies. -Status post 4 units transfusion the PRBCs -Patient no longer having shortness of breath at rest just with exertion -A.m. CBC to follow hemoglobin -Tolerating diet, advance as tolerated -will hold off on endoscopy and colonoscopy after discussion with surgery due to many recent negative workups for GI bleeding and severe iron deficiency -If pt has significant drop in hemoglobin or continues to decline will reevaluate for endoscopy -We will give IV Iron today -retic 3.9% (2) Acute GI bleeding Current Visit: Yes Status: Acute Assessment and Plan: Pt has had dark stools intermittently for a couple of months now. Stool occult blood positive. -possibly due to upper gi bleed but similar history to prior with many negative workups; will hold off on endocscopy unless hemoglobin continues to fall -occasional NSAIDS recently and no recent blood thinners -INR WNL -s/p 4 units of PRBC. -iron studies with significant iron deficency -change protonix IV to po ppi -cbc in am -hemoglobin improved up to 7.9 from 4.4 and has been 7.0 and 7.1 with last 2 checks -Many negative workups for GI bleeding -IV iron today (3) Ovarian cancer Current Visit: Yes Status: Acute Assessment and Plan: -Stable -per hx in 1980s (4) Hyponatremia Current Visit: Yes Status: Acute Assessment and Plan: -resolved with IVF (5) Rheumatoid arthritis Current Visit: Yes Status: Acute Assessment and Plan: Continue leflunomide (6) DVT prophylaxis Current Visit: Yes Status: Acute Assessment and Plan: scds DVT Prophylaxis: scds - Time Spent with Patient Total time spent is greater than 50% in coordination of care (as documented) at patient's floor/unit and/or counseling patient: 25 - 35 minutes Internal Medicine: Result - Labs CBC & Chem 7: 11/10/17 07:16 18 00:25 Labs: Short CBC 11/09/17 11/09/17 11/10/17 Range/Units 13:51 15:50 00:15 WBC 6.1 6.2 (4.3-11.1) K/mcL Hgb 7.8 L 7.9 L 7.0 L (11.5-15.4) g/dL Hct 24.3 L 25.4 L 21.9 L (35.3-44.9) % Plt Count 305 270 (140-400) K/mcL Neutrophils # 4.5 4.3 (1.6-8.9) K/mcL 11/10/17 Range/Units 07:16 WBC 6.0 (4.3-11.1) K/mcL Hgb 7.1 L (11.5-15.4) g/dL Hct 22.5 L (35.3-44.9) % Plt Count 260 (140-400) K/mcL Neutrophils # 4.3 (1.6-8.9) K/mcL - ABG Interpretation ABG results: PT/INR, D-dimer PT 12.7 Seconds (9.4-12.1) H 11/09/17 00:25 Consult Discharge Plan - Plan Referrals: Trevor Christopher MD [Primary Care Provider] - (3) Ovarian cancer Qualifiers: Laterality: unspecified laterality Qualified Code(s): C56.9 - Malignant neoplasm of unspecified ovary (5) Rheumatoid arthritis Qualifiers: Rheumatoid arthritis location: unspecified site
[2017-11-10 09:18] LABS: BUN/Creatinine Ratio 30 (6-26); Blood Urea Nitrogen 10 mg/dL (8-23); Calcium 8.5 mg/dL (8.6-10.3); Carbon Dioxide 22 mEq/L (23-29); Chloride 105 mEq/L (98-107); Glucose 100 mg/dL (70-105); Magnesium 1.9 mg/dL (1.6-2.6); Osmolality,Calculated 277 (280-300); Phosphorous 2.9 mg/dL (2.7-4.5); Potassium 3.5 mEq/L (3.5-5.1); Sodium 134 mEq/L (136-145); eGFR For Non-African Americans > 60 (> 60)
[2017-11-10] MEDS: Acetaminophen 325 MG TABLET PO PRN (14:18)
[2017-11-10] MEDS ORDERED: Ondansetron 4 MG/2 ML VIAL IVP PRN (14:37)
[2017-11-10 15:14] LABS: Basophils # 0.1 K/mcL (0.0-0.2); Basophils % 0.8 %; Eosinophils # 0.1 K/mcL (0.0-0.6); Eosinophils % 1.5 %; Hematocrit 26.1 % (35.3-44.9); Hemoglobin 8.1 g/dL (11.5-15.4); Immature Granulocytes % 0.3 % (0-4); Lymphocytes # 1.1 K/mcL (0.6-4.6); Lymphocytes % 14.5 %; Mean Corpuscular Hemoglobin 24.3 pg (28.0-33.3); Mean Corpuscular Volume 78.4 fL (83.0-100.0); Mean Platelet Volume 10.4 fL (9.4-12.4); Monocytes # 0.7 K/mcL (0.0-1.3); Monocytes % 8.7 %; Neutrophils # 5.5 K/mcL (1.6-8.9); Platelet Count 282 K/mcL (140-400); Red Blood Count 3.33 M/mcL (3.82-4.97); Red Cell Distribution Width 18.5 % (11.5-14.5); Segmented Neutrophils % 74.2 %
[2017-11-10] MEDS: Pantoprazole 40 MG in 0.9 % Sodium Chloride Mini Bag 100 ML IVC SCH ×2 (15:18→15:19)
[2017-11-10 21:08] LABS: Basophils % 0.6 %; Eosinophils # 0.1 K/mcL (0.0-0.6); Eosinophils % 1.3 %; Hematocrit 25.8 % (35.3-44.9); Hemoglobin 7.7 g/dL (11.5-15.4); Immature Granulocytes % 0.5 % (0-4); Lymphocytes # 0.9 K/mcL (0.6-4.6); Lymphocytes % 15.2 %; Mean Corpuscular HGB Conc 29.8 g/dL (31.6-35.5); Mean Corpuscular Hemoglobin 24.9 pg (28.0-33.3); Mean Corpuscular Volume 83.5 fL (83.0-100.0); Mean Platelet Volume 11.2 fL (9.4-12.4); Monocytes # 0.6 K/mcL (0.0-1.3); Monocytes % 9.9 %; Neutrophils # 4.5 K/mcL (1.6-8.9); Nucleated Red Blood Cells 0.3 /100 WBC (0); Platelet Count 235 K/mcL (140-400); Red Blood Count 3.09 M/mcL (3.82-4.97); Red Cell Distribution Width 19.4 % (11.5-14.5); Segmented Neutrophils % 72.5 %
[2017-11-11] MEDS: Fluticasone Propionate Nasal 50 MCG/SPRAY BOTTLE NS SCH (08:07)
[2017-11-11] MEDS: Leflunomide [Arava] 10 MG PO SCH (08:07)
[2017-11-11 08:10] LABS: Basophils % 0.6 %; Eosinophils # 0.1 K/mcL (0.0-0.6); Eosinophils % 1.8 %; Hematocrit 27.3 % (35.3-44.9); Hemoglobin 8.4 g/dL (11.5-15.4); Immature Granulocytes % 0.3 % (0-4); Lymphocytes # 0.9 K/mcL (0.6-4.6); Lymphocytes % 12.9 %; Mean Corpuscular HGB Conc 30.8 g/dL (31.6-35.5); Mean Corpuscular Hemoglobin 24.8 pg (28.0-33.3); Mean Corpuscular Volume 80.5 fL (83.0-100.0); Mean Platelet Volume 11.3 fL (9.4-12.4); Monocytes # 0.7 K/mcL (0.0-1.3); Neutrophils # 5.1 K/mcL (1.6-8.9); Platelet Count 254 K/mcL (140-400); Red Blood Count 3.39 M/mcL (3.82-4.97); Red Cell Distribution Width 18.9 % (11.5-14.5); Segmented Neutrophils % 74.4 %
--- NOTE | 2017-11-11 09:33 | Discharge Summary ---
- NOTES TO OUTPATIENT PROVIDER Notes to Outpatient Provider: Patient presented again with severe iron deficiency anemia requiring transfusion of PRBCs and iron infusion. Hemoglobin was stable. Discharge patient should follow up outpatient for colonoscopy and EGD. She received 1 dose of iron IV and should be set up for continued IV infusions. Date of Encounter: 11/11/17 Time of Encounter: 09:30 - Discharge Diagnosis (1) Symptomatic anemia Priority: Primary Status: Acute (2) Acute GI bleeding Priority: Secondary Status: Acute (3) Ovarian cancer Priority: Secondary Status: Acute Qualifiers: Laterality: unspecified laterality Qualified Code(s): C56.9 - Malignant neoplasm of unspecified ovary (4) Hyponatremia Priority: Secondary Status: Acute (5) Rheumatoid arthritis Priority: Secondary Status: Acute Qualifiers: Rheumatoid arthritis location: unspecified site Rheumatoid factor presence : unspecified presence Qualified Code(s): M06.9 - Rheumatoid arthritis, unspecified (6) DVT prophylaxis Priority: Secondary Status: Acute Hospital course: Ms. Morataya is a 62 year old female who presented to the emergency department from PCPs office for low hemoglobin. The patient been experiencing progressive dyspnea on exertion prior to that. The patient has a Sensitive. History of iron deficiency anemia that has been worked up many times with EGDs, colonoscopies, small bowel capsule endoscopies. Patient was transfused 4 units of packed red blood cells on admission and hemoglobin has been stable. The patient also received 1 dose of IV iron. The patient's laboratory studies revealed severe iron deficiency anemia. She did have positive fecal occult blood test. Gen. surgery was consult and evaluated the patient and in conjunction with the patient myself as surgeon it was decided not to from inpatient colonoscopy and EGD as it is unlikely to reveal source with many prior negative workups. However the patient should have outpatient EGD and colonoscopy performed for completeness; especially in light of her ovarian cancer history. Also recommend at least monthly hemoglobin checks initially and should have it checked in the next 3-5 days after discharge. Patient states she will follow-up with her primary care physician this week. Also recommend continued follow-up with manager radio. Patient declined oral iron as she states this is somewhat for her. Patient is stable condition and all questions answered prior to discharge on 11/11/2017. Discharge discussed with: patient, nurse - Time Spent with Patient Total time spent providing and/or coordinating discharge services: Greater than 30 minutes - Discharge Medications Home Medications: Ascorbic Acid [Vitamin C] 1,000 mg PO DAILY 06/10/15 [History] Beclomethasone Diprop 80mcg [QVAR 80 mcg] 2 puff IH DAILY 06/10/15 [History] Calcium Carbonate/Vitamin D3 [Calcium 500 + D Tablet] 2 tab PO DAILY 06/10/15 [ History] Cholecalciferol (Vitamin D3) [Vitamin D3] 4,000 unit PO DAILY 06/10/15 [History] Pediatric Multivitamin Comb#30 [Katianaes Children Multivitamin] 1 each PO DAILY 06/10/15 [History] Fexofenadine/Pseudoephedrine [Annia-D 24 Hour Tablet] 1 tab PO DAILY 12/16/15 [History] Fluticasone Propionate Nasal [Flonase] 1 spr NS DAILY 12/16/15 [History] Leflunomide [Arava] 10 mg PO QDPC 10/08/16 [History] Allergies/Adverse Reactions: 3 Allergy/AdvReac Type Severity Reaction Status Date / Time ciprofloxacin [From Cipro] Allergy Rash Verified 12/03/16 09:45 levofloxacin [From Levaquin] Allergy Palpitation Verified 12/03/16 09:45 s Date of admission: 11/08/17 13:41 Primary care physician: Trevor Christopher MD - Constitutional Vitals: Temp Pulse Resp BP Pulse Ox 99.1 F 87 17 140/81 92 11/11/17 07:22 11/11/17 07:22 11/11/17 07:22 11/11/17 07:22 11/11/17 08:15 Exam: Constitutional: No acute distress, Alert Psych: AAO x 3, appropirate affect HEENT: NCAT, EOMI Neck: supple Cardio: regular rate and rhythm Resp: clear to ascultation bilaterally, no wheezes/rales/ronchi Abd: soft, non tender/non distended, positive bowel sounds Extremities: Significant lower extremity edema that is chronic. Neuro: no focal deficits appreciated - Patient Status Disposition: Home, Self-Care Condition: Fair Functional capacity at discharge: independent ambulation Overall status at discharge: patient is progressing back to baseline - Discharge Instructions Follow Up With: Trevor Christopher MD [Primary Care Provider] - - Diet and Activity Activity: increase activity as tolerated Diet: advance to your usual diet
[2017-11-11] MEDS ORDERED: Ipratropium/Albuterol Neb 3 ML IH PRN (10:09)
[2017-11-11] MEDS ORDERED: Isovue-370 500 ML INFUS..BTL IV ONE (10:11)
--- NOTE | 2017-11-11 10:14 | Event Note ---
Date of Encounter: 11/11/17 Time of Encounter: 10:13 Since my evaluation the patient has developed shortness of breath nausea and has applied supplement oxygen upon my evaluation the patient is tachypneic and has requiring 5 L of supplemental oxygen to maintain a pulse oximetry of 90%. Patient is also tachycardic in the low 100s. Due to the patient's history of pulmonary embolism will order a stat CT to evaluate.
[2017-11-11] MEDS ORDERED: *HR* Heparin 5,000 UNIT/ML VIAL IVP ONE (12:10)
[2017-11-11] MEDS ORDERED: *HR* Heparin 5,000 UNIT/ML VIAL IVP PRN ×2 (12:10)
[2017-11-11 13:10] LABS: Hematocrit 28.6 % (35.3-44.9); Hemoglobin 8.7 g/dL (11.5-15.4); Mean Corpuscular HGB Conc 30.4 g/dL (31.6-35.5); Mean Corpuscular Volume 82.2 fL (83.0-100.0); Platelet Count 247 K/mcL (140-400); Red Blood Count 3.48 M/mcL (3.82-4.97); Red Cell Distribution Width 19.2 % (11.5-14.5)
[2017-11-11 13:17] LABS: Heparin anti-factor XA UFH 0.07 IU/mL (0.30-0.70); INR 1.2; Prothrombin Time 13.5 Seconds (9.4-12.1)
[2017-11-11] MEDS: Heparin 25,000 UNIT/500 ML D5W 25,000 UNIT/500 ML BAG IVC SCH (13:28)
[2017-11-11] MEDS: Pantoprazole 40 MG VIAL IVP SCH ×2 (13:30→17:34)
--- NOTE | 2017-11-11 17:24 | Oncology Inp Consult Note ---
<BrownModesta L - Last Filed: 11/12/17 10:13> Date of Encounter: 11/11/17 Time of Encounter: 17:00 Assessment and Plan (1) Acute pulmonary embolism Status: Acute Assessment and plan: CTA reveals multiple acute bilateral lobar and segmental PE Symptomatic with SOB on exertion, pain with inspiration, on oxymask 5L ( previously not on O2) Plan: Continue heparin gtt for time being while continuing to trend hgb for stability given recent anemic episode Plan for AC at d/c TBD-likely plan for Xarelto as patient tolerated decreased dosing in the past Appreciate surgical consult recommendations in regards to endoscopy Check BLE venous doppler Echocardiogram Qualifiers: Qualified Code(s): I26.99 - Other pulmonary embolism without acute cor pulmonale (2) Acute blood loss anemia Status: Acute Assessment and plan: Patient presented with hgb 4.7 and iron deficiency suggestive of acute blood loss Evaluated by surgery on admission and secondary to multiple recent scopes which have been negative in past she declined endoscopic evaluation Hgb stable s/p IV iron and PRBC transfusion PLan: Add IV venofer x1 to be given this evening Assess for celiac disease Check LDH and Abdiel Recheck folate and B12 Surgery has been re-consulted in light of acute and symptomatic PE now requiring AC Monitor CBC closely while on heparin and continue to trend-see plan for PE Continue PPI (3) Kidney cysts Status: Acute Assessment and plan: CT abdomen/pelvis and CTA noted multiple low attenuation hepatic and renal lesions likely cysts along with a focal hyperdense nodule either abutting or arising from the left collecting system/ureter measuring 2.5 x 1.4 cm. Renal protocol MRI ordered for further assessment - Data of Consult Patient: known to practice within the last 3 years Consult date: 11/11/17 Requesting Physician: Meek Viveros DO Primary Care Provider: Trevor Christopher MD - Consult Narrative Reason for consult: Anemia, Iron Deficiency History of present illness: Ms. Morataya is a 62 year old female known to our facility for history of refractory HELEN. She has a remote history of serous cystadenocarcinoma, with exploratory surgery and ovarian cyst removal in September 1984. She also apparently had a lesion in the rectosigmoid junction that caused GI bleeding at the time of diagnosis, this was resected, she was then given adjuvant Cytoxan, Adriamycin and Cisplatin. She has a h/o acute PE in April 2012 with anemia, endoscopic evaluation failed to show evidence of bleeding at that time. She has been able to tolerate only 10 mg Xarelto in the past secondary to continued issues with bleeding and anemia. She follows with the cancer center for iron infusions and CBC monitoring but has not had iron in over a year. Most recently , about one year ago patient stopped taking Xarelto due to starting a new RA medication-Leflonomide. Patient states that she was told this medication also has anticoagulant properties so Xarelto was not needed, she also experienced continued issues with anemia which also led to stopping the Xarelto. Patient states that over the past 5 years she has had multiple negative upper and lower endoscopy which have been negative other than a polyp with was resected. Ms. Morataya presented to [facility] for severe anemia with a hgb of 4.7 on 11/07/17, with evidence of iron deficiency with Iron 14, 4% saturation and ferritin <8. She was given PRBC and IV Iron, she was planned for discharge today when she developed acute onset SOB. CTA was obtained which revealed multiple acute bilateral lobar and segmental PE. Past Med Surg Social Fam HX - Past Medical History Medical history: arthritis, asthma, other Additional medical history: anemia Psychiatric history: no psych history - Social History Smoking Status: Never smoker Smokeless Tobacco Status: No Alcohol use: none Drug use: none Medications and Allergies Ascorbic Acid [Vitamin C] 1,000 mg PO DAILY 06/10/15 [History] Beclomethasone Diprop 80mcg [QVAR 80 mcg] 2 puff IH DAILY 06/10/15 [History] Calcium Carbonate/Vitamin D3 [Calcium 500 + D Tablet] 2 tab PO DAILY 06/10/15 [ History] Cholecalciferol (Vitamin D3) [Vitamin D3] 4,000 unit PO DAILY 06/10/15 [History] Pediatric Multivitamin Comb#30 [Gummies Children Multivitamin] 1 each PO DAILY 06/10/15 [History] Fexofenadine/Pseudoephedrine [Annia-D 24 Hour Tablet] 1 tab PO DAILY 12/16/15 [History] Fluticasone Propionate Nasal [Flonase] 1 spr NS DAILY 12/16/15 [History] Leflunomide [Arava] 10 mg PO QDPC 10/08/16 [History] 3 Allergy/AdvReac Type Severity Reaction Status Date / Time ciprofloxacin [From Cipro] Allergy Rash Verified 12/03/16 09:45 levofloxacin [From Levaquin] Allergy Palpitation Verified 12/03/16 09:45 s Constitutional: Absent: anorexia, fever(s), night sweats, weight loss Additional comments: profound fatigue and weakness which led to admission, now improved Eyes: Absent: change in vision Nose, mouth and throat: Absent: dysphagia Cardiovascular: Absent: irregular heart rhythm, lightheadedness Respiratory: Present: dyspnea, pain on inspiration. Absent: cough, hemoptysis Gastrointestinal: Absent: abdominal pain, change in bowel habits, hematemesis, hematochezia, melena, nausea, vomiting Genitourinary: Absent: dysuria Musculoskeletal: Present: muscle weakness, myalgias Integumentary: Absent: wounds Neurological: Absent: focal weakness, frequent falls Psychiatric: Absent: anxiety, depression Hematologic/Lymphatic: Present: as per HPI Oncology - Exam - Constitutional Vitals: Temp Pulse Resp BP Pulse Ox 99.2 F 100 18 130/80 100 11/11/17 15:49 11/11/17 15:49 11/11/17 15:49 11/11/17 15:49 11/11/17 15:49 General appearance: cooperative, no acute distress, no febrile - Head Head exam: Present: atraumatic - ENT ENT exam: Present: mucous membranes moist - Respiratory Respiratory exam: Present: decreased breath sounds, CTAB. Absent: respiratory distress - Cardiovascular Cardiovascular exam: Present: RRR, +S1, +S2 - GI/Abdominal GI/Abdominal exam: Present: normal bowel sounds, soft. Absent: tenderness - Extremities Exam Additional comments: BLE Edema, non pitting, 2+ - Neurological Exam Neurological exam: Present: alert, oriented X3, no focal deficits, strengths equal and symetr throughout - Psychiatric Psychiatric exam: Present: normal affect, normal mood - Skin Skin exam: Present: dry, intact, normal color, warm Consult Discharge Plan - Plan Referrals: Trevor Christopher MD [Primary Care Provider] - 11/18/17 3:30 pm (Please follow up as schedule..) <Abeba Capone - Last Filed: 11/12/17 17:10> Date of Encounter: 11/11/17 - Data of Consult Requesting Physician: Palma Rich MD Primary Care Provider: Trevor Christopher MD - Consult Narrative History of present illness: Ms. Morataya is a 62 year old female Oncology - Exam - Constitutional Vitals: Temp Pulse Resp BP Pulse Ox 98.1 F 99 18 119/81 93 11/12/17 15:39 11/12/17 15:39 11/12/17 15:39 11/12/17 15:39 11/12/17 15:39 Oncology - Results Labs: 3 11/12/17 11/12/17 11/12/17 12:44 03:36 03:36 WBC RBC Hgb Hct MCV MCH MCHC RDW Plt Count MPV Reticulocyte # Immature Gran % Seg Neutrophils % Lymphocytes % Monocytes % Eosinophils % Basophils % Neutrophils # Lymphocytes # Monocytes # Eosinophils # Basophils # Nucleated RBCs/100 WBC Percent Retic Immature Retic Fraction Retic Hgb Equivalent PT INR Heparin Anti-Xa, Unfract 0.44 0.72 H Sodium Potassium Chloride Carbon Dioxide BUN Creatinine Est GFR ( Amer) Est GFR (Non-Af Amer) BUN/Creatinine Ratio Glucose Calculated Osmolality Calcium Phosphorus Magnesium Lactate Dehydrogenase Vitamin B12 Folate ALBERTA, Poly Interpret NEG 3 11/12/17 11/12/17 11/12/17 03:36 03:36 03:36 WBC RBC Hgb Hct MCV MCH MCHC RDW Plt Count MPV Reticulocyte # Immature Gran % Seg Neutrophils % Lymphocytes % Monocytes % Eosinophils % Basophils % Neutrophils # Lymphocytes # Monocytes # Eosinophils # Basophils # Nucleated RBCs/100 WBC Percent Retic Immature Retic Fraction Retic Hgb Equivalent PT INR Heparin Anti-Xa, Unfract Sodium 133 L Potassium 3.0 L Chloride 101 Carbon Dioxide 28 BUN 13 Creatinine 0.40 L Est GFR ( Amer) > 60 Est GFR (Non-Af Amer) > 60 BUN/Creatinine Ratio 33 H Glucose 116 H Calculated Osmolality 277 L Calcium 8.3 L Phosphorus Magnesium Lactate Dehydrogenase 223 Vitamin B12 > 1500 H Folate > 22.3 H ALBERTA, Poly Interpret 3 11/12/17 11/12/17 11/11/17 03:36 00:29 21:04 WBC 7.8 8.4 RBC 2.94 L 3.20 L Hgb 7.3 L 8.1 L Hct 23.0 L 25.5 L MCV 78.2 L 79.7 L MCH 24.8 L 25.3 L MCHC 31.7 31.8 RDW 19.5 H 19.3 H Plt Count 201 202 MPV 10.7 11.1 Reticulocyte # Immature Gran % 0.4 Seg Neutrophils % 63.2 Lymphocytes % 21.0 Monocytes % 11.0 Eosinophils % 3.6 Basophils % 0.8 Neutrophils # 4.9 Lymphocytes # 1.6 Monocytes # 0.9 Eosinophils # 0.3 Basophils # 0.1 Nucleated RBCs/100 WBC Percent Retic Immature Retic Fraction Retic Hgb Equivalent PT INR Heparin Anti-Xa, Unfract 0.51 Sodium Potassium Chloride Carbon Dioxide BUN Creatinine Est GFR ( Amer) Est GFR (Non-Af Amer) BUN/Creatinine Ratio Glucose Calculated Osmolality Calcium Phosphorus Magnesium Lactate Dehydrogenase Vitamin B12 Folate ALBERTA, Poly Interpret 3 11/11/17 11/11/17 11/11/17 21:04 12:16 12:16 WBC 7.2 7.9 RBC 3.22 L 3.48 L Hgb 8.0 L 8.7 L Hct 26.6 L 28.6 L MCV 82.6 L 82.2 L MCH 24.8 L 25.0 L MCHC 30.1 L 30.4 L RDW 19.9 H 19.2 H Plt Count 168 247 MPV 12.8 H 11.0 Reticulocyte # Immature Gran % Seg Neutrophils % Lymphocytes % Monocytes % Eosinophils % Basophils % Neutrophils # Lymphocytes # Monocytes # Eosinophils # Basophils # Nucleated RBCs/100 WBC Percent Retic Immature Retic Fraction Retic Hgb Equivalent PT 13.5 H INR 1.2 Heparin Anti-Xa, Unfract 0.07 L Sodium Potassium Chloride Carbon Dioxide BUN Creatinine Est GFR ( Amer) Est GFR (Non-Af Amer) BUN/Creatinine Ratio Glucose Calculated Osmolality Calcium Phosphorus Magnesium Lactate Dehydrogenase Vitamin B12 Folate ALBERTA, Poly Interpret 3 11/11/17 11/10/17 11/10/17 07:17 21:01 14:39 WBC 6.8 6.2 7.5 RBC 3.39 L 3.09 L 3.33 L Hgb 8.4 L 7.7 L 8.1 L Hct 27.3 L 25.8 L 26.1 L MCV 80.5 L 83.5 78.4 L MCH 24.8 L 24.9 L 24.3 L MCHC 30.8 L 29.8 L 31.0 L RDW 18.9 H 19.4 H 18.5 H Plt Count 254 235 282 MPV 11.3 11.2 10.4 Reticulocyte # Immature Gran % 0.3 0.5 0.3 Seg Neutrophils % 74.4 72.5 74.2 Lymphocytes % 12.9 15.2 14.5 Monocytes % 10.0 9.9 8.7 Eosinophils % 1.8 1.3 1.5 Basophils % 0.6 0.6 0.8 Neutrophils # 5.1 4.5 5.5 Lymphocytes # 0.9 0.9 1.1 Monocytes # 0.7 0.6 0.7 Eosinophils # 0.1 0.1 0.1 Basophils # 0.0 0.0 0.1 Nucleated RBCs/100 WBC 0.3 H Percent Retic Immature Retic Fraction Retic Hgb Equivalent PT INR Heparin Anti-Xa, Unfract Sodium Potassium Chloride Carbon Dioxide BUN Creatinine Est GFR ( Amer) Est GFR (Non-Af Amer) BUN/Creatinine Ratio Glucose Calculated Osmolality Calcium Phosphorus Magnesium Lactate Dehydrogenase Vitamin B12 Folate ALBERTA, Poly Interpret 3 11/10/17 11/10/17 11/10/17 07:16 07:16 00:15 WBC 6.0 6.2 RBC 2.90 L 2.81 L Hgb 7.1 L 7.0 L Hct 22.5 L 21.9 L MCV 77.6 L 77.9 L MCH 24.5 L 24.9 L MCHC 31.6 32.0 RDW 18.2 H 18.1 H Plt Count 260 270 MPV 10.4 10.9 Reticulocyte # 0.12 H Immature Gran % 0.2 0.3 Seg Neutrophils % 70.7 70.2 Lymphocytes % 14.7 14.8 Monocytes % 10.3 10.2 Eosinophils % 3.3 3.7 Basophils % 0.8 0.8 Neutrophils # 4.3 4.3 Lymphocytes # 0.9 0.9 Monocytes # 0.6 0.6 Eosinophils # 0.2 0.2 Basophils # 0.1 0.1 Nucleated RBCs/100 WBC Percent Retic 3.9 H Immature Retic Fraction 31.0 Retic Hgb Equivalent 19.2 L PT INR Heparin Anti-Xa, Unfract Sodium 134 L Potassium 3.5 Chloride 105 Carbon Dioxide 22 L BUN 10 Creatinine 0.33 L Est GFR ( Amer) > 60 Est GFR (Non-Af Amer) > 60 BUN/Creatinine Ratio 30 H Glucose 100 Calculated Osmolality 277 L Calcium 8.5 L Phosphorus 2.9 Magnesium 1.9 Lactate Dehydrogenase Vitamin B12 Folate ALBERTA, Poly Interpret 3 11/09/17 11/09/17 11/09/17 15:50 13:51 08:07 WBC 6.1 5.6 RBC 3.18 L 2.99 L Hgb 7.9 L 7.8 L 7.5 L Hct 25.4 L 24.3 L 23.3 L MCV 79.9 L 77.9 L MCH 24.8 L 25.1 L MCHC 31.1 L 32.2 RDW 17.6 H 17.6 H Plt Count 305 307 MPV 11.0 10.9 Reticulocyte # Immature Gran % 0.3 0.4 Seg Neutrophils % 73.1 67.9 Lymphocytes % 13.5 16.2 Monocytes % 9.3 10.8 Eosinophils % 2.8 3.6 Basophils % 1.0 1.1 Neutrophils # 4.5 3.8 Lymphocytes # 0.8 0.9 Monocytes # 0.6 0.6 Eosinophils # 0.2 0.2 Basophils # 0.1 0.1 Nucleated RBCs/100 WBC Percent Retic Immature Retic Fraction Retic Hgb Equivalent PT INR Heparin Anti-Xa, Unfract Sodium Potassium Chloride Carbon Dioxide BUN Creatinine Est GFR ( Amer) Est GFR (Non-Af Amer) BUN/Creatinine Ratio Glucose Calculated Osmolality Calcium Phosphorus Magnesium Lactate Dehydrogenase Vitamin B12 Folate ALBERTA, Poly Interpret 3 11/09/17 11/09/17 11/09/17 00:25 00:25 00:25 WBC 5.4 RBC 2.91 L Hgb 7.4 L Hct 23.2 L MCV 79.7 L MCH 25.4 L MCHC 31.9 RDW 17.8 H Plt Count 287 MPV 10.8 Reticulocyte # Immature Gran % 0.4 Seg Neutrophils % 57.7 Lymphocytes % 23.5 Monocytes % 12.5 Eosinophils % 4.8 Basophils % 1.1 Neutrophils # 3.1 Lymphocytes # 1.3 Monocytes # 0.7 Eosinophils # 0.3 Basophils # 0.1 Nucleated RBCs/100 WBC Percent Retic Immature Retic Fraction Retic Hgb Equivalent PT 12.7 H INR 1.1 Heparin Anti-Xa, Unfract Sodium 136 Potassium 3.7 Chloride 107 Carbon Dioxide 26 BUN 10 Creatinine 0.37 L Est GFR ( Amer) > 60 Est GFR (Non-Af Amer) > 60 BUN/Creatinine Ratio 27 H Glucose 101 Calculated Osmolality 281 Calcium 8.4 L Phosphorus 3.1 Magnesium 2.0 Lactate Dehydrogenase Vitamin B12 Folate ALBERTA, Poly Interpret 3 11/08/17 17:53 WBC 5.0 RBC 2.57 L Hgb 6.2 L D Hct 20.0 L MCV 77.8 L MCH 24.1 L MCHC 31.0 L RDW 17.4 H Plt Count 328 MPV 10.9 Reticulocyte # Immature Gran % 0.2 Seg Neutrophils % 55.0 Lymphocytes % 27.7 Monocytes % 13.3 Eosinophils % 3.0 Basophils % 0.8 Neutrophils # 2.8 Lymphocytes # 1.4 Monocytes # 0.7 Eosinophils # 0.2 Basophils # 0.0 Nucleated RBCs/100 WBC Percent Retic Immature Retic Fraction Retic Hgb Equivalent PT INR Heparin Anti-Xa, Unfract Sodium Potassium Chloride Carbon Dioxide BUN Creatinine Est GFR ( Amer) Est GFR (Non-Af Amer) BUN/Creatinine Ratio Glucose Calculated Osmolality Calcium Phosphorus Magnesium Lactate Dehydrogenase Vitamin B12 Folate ALBERTA, Poly Interpret - Attending Attestation 1. Significant iron deficiency anemia. Etiology not clear. She may have GI bleed. We will also rule out celiac disease. Hemoglobin improved from 4.7 on 11/08/2017 to 7.3 with packed RBC transfusion. She also received IV iron and we will give one more dose of senna for 400 mg IV No evidence of hemolysis. B12 folate and TSH normal. She had colonoscopy and upper endoscopy in the past 2. Previous history of DVT. She was on Xarelto stopped last year because of possible interaction with leflunomide. This medication has a longer half-life and possible interaction with Coumadin. I could not find documented interaction with newer oral anticoagulation agents 3. Acute bilateral PE. Currently she is on supplemental oxygen. She was not on oxygen at home. On 11/12/2017 left lower extremity venous Doppler showed a acute thrombosis Echocardiogram ejection fraction 60-65%. IVC dilated No major right ventricular strain She may be transitioned to Eliquis 5 mg by mouth twice a day on discharge 4. Rheumatoid arthritis on treatment with leflunomide as mentioned. Currently this medication is on hold According to her this controlled her symptoms better than methotrexate and she has been on this medication for several years. She followed up with Dr. Boone Inpatient Charges Provider: Dr. Jewell Capone Consult Charges: [id number]
[2017-11-11] MEDS ORDERED: Iron Sucrose Complex 400 MG in 0.9 % Sodium Chloride 250 ML IVPB ONE (17:35)
[2017-11-11 21:15] LABS: Hematocrit 26.6 % (35.3-44.9); Mean Corpuscular HGB Conc 30.1 g/dL (31.6-35.5); Mean Corpuscular Hemoglobin 24.8 pg (28.0-33.3); Mean Corpuscular Volume 82.6 fL (83.0-100.0); Mean Platelet Volume 12.8 fL (9.4-12.4); Platelet Count 168 K/mcL (140-400); Red Blood Count 3.22 M/mcL (3.82-4.97); Red Cell Distribution Width 19.9 % (11.5-14.5)
[2017-11-12 00:42] LABS: Hematocrit 25.5 % (35.3-44.9); Hemoglobin 8.1 g/dL (11.5-15.4); Mean Corpuscular HGB Conc 31.8 g/dL (31.6-35.5); Mean Corpuscular Hemoglobin 25.3 pg (28.0-33.3); Mean Corpuscular Volume 79.7 fL (83.0-100.0); Mean Platelet Volume 11.1 fL (9.4-12.4); Platelet Count 202 K/mcL (140-400); Red Cell Distribution Width 19.3 % (11.5-14.5)
[2017-11-12 03:55] LABS: Basophils # 0.1 K/mcL (0.0-0.2); Basophils % 0.8 %; Eosinophils # 0.3 K/mcL (0.0-0.6); Eosinophils % 3.6 %; Hemoglobin 7.3 g/dL (11.5-15.4); Immature Granulocytes % 0.4 % (0-4); Lymphocytes # 1.6 K/mcL (0.6-4.6); Mean Corpuscular HGB Conc 31.7 g/dL (31.6-35.5); Mean Corpuscular Hemoglobin 24.8 pg (28.0-33.3); Mean Corpuscular Volume 78.2 fL (83.0-100.0); Mean Platelet Volume 10.7 fL (9.4-12.4); Monocytes # 0.9 K/mcL (0.0-1.3); Neutrophils # 4.9 K/mcL (1.6-8.9); Platelet Count 201 K/mcL (140-400); Red Blood Count 2.94 M/mcL (3.82-4.97); Red Cell Distribution Width 19.5 % (11.5-14.5); Segmented Neutrophils % 63.2 %
[2017-11-12 04:19] LABS: BUN/Creatinine Ratio 33 (6-26); Blood Urea Nitrogen 13 mg/dL (8-23); Calcium 8.3 mg/dL (8.6-10.3); Carbon Dioxide 28 mEq/L (23-29); Chloride 101 mEq/L (98-107); Glucose 116 mg/dL (70-105); Osmolality,Calculated 277 (280-300); Sodium 133 mEq/L (136-145); eGFR For Non-African Americans > 60 (> 60)
[2017-11-12 04:43] LABS: Folate > 22.3 ng/mL (3.0-16.0); Vitamin B12 > 1500 pg/mL (250-1100)
[2017-11-12] MEDS: Pantoprazole 40 MG VIAL IVP SCH ×2 (05:56→17:48)
[2017-11-12] MEDS: Fluticasone Propionate Nasal 50 MCG/SPRAY BOTTLE NS SCH (08:13)
[2017-11-12] MEDS ORDERED: Leflunomide [Arava] 10 MG PO SCH ×2 (09:00)
--- NOTE | 2017-11-12 12:42 | General Surgery Progress Note ---
Date of Encounter: 11/12/17 Time of Encounter: 12:35 Subjective Narrative: General Surgery / GI patient not in her room due to ordered Doppler Venograms for further evaluation DVT with extensive/bilateral PE. The initial consultation was placed, 11/09/17, for further evaluation recurrent anemia. The patient apparently presented with a hemoglobin of around 4.7 and iron less than 10 mcg/dL. The patient has had recurrent anemia and describes undergoing repeated upper endoscopies and colonoscopies. These repeated studies failed to demonstrate a GI source for her recurrent anemia. The patient was not willing to consider repeat EGD and/or colonoscopy. Since that initial consultation, transfusions were administered with improved H&H to approximately 8.0/26.6. The patient has continued to "hover" in this general vicinity with no overt signs or symptoms of bleeding. The patient was recently diagnosed with bilateral pulmonary embolisms could due to DVT (Doppler venograms pending). Patient is being anticoagulated with a significant concern for recurrent anemia/GI bleed. I have spoken with Dr. Rich. He plans to monitor the patient and notify me if he wishes to consider any intervention such as repeat EGD or colonoscopy. Alternatively, a RBC-tagged bleeding scan can be considered if s/s GI hemorrhage develop. I will be available for further evaluation and assistance in the care of this patient. Objective Vital Signs - Last 8 Hours Temp Pulse Resp BP Pulse Ox 11/12/17 06:42 97.4 F L 92 17 138/83 91 11/12/17 05:15 99.2 F 97 16 121/85 94 Intake and Output 11/11/17 11/12/17 11/12/17 23:59 07:59 15:59 Intake Total 423 / 423 1516 / 1516 Output Total 300 / 300 Balance 123 / 123 1516 / 1516 Intake: IV Fluids 183 / 183 1516 / 1516 Heparin 25,000 UNIT/500 ML D5W 183 / 183 136 / 136 25,000 unit In 500 ml @ 14 UNIT /KG/HR 25.984 mls/hr IVC . [id number] [facility] Rx#:[id number] Venofer 400 MG In 0.9 % Sodium 270 / 270 Chloride 250 ML @ 120 mls/hr IVPB ONCE ONE Rx#:[id number] Oral 240 / 240 Output: Urine 300 / 300 Other: Meal Lunch Percent of Meal Consumed 80% # Voids 1 Weight 93.3 kg Patient Weight 11/12/17 23:59 Weight 93.3 kg - Labs 11/12/17 03:36 11/12/17 03:36 Diabetes panel 11/12/17 Range/Units 03:36 Sodium 133 L (136-145) mEq/L Potassium 3.0 L (3.5-5.1) mEq/L Chloride 101 (98-107) mEq/L Carbon Dioxide 28 (23-29) mEq/L BUN 13 (8-23) mg/dL Creatinine 0.40 L (0.60-1.20) mg/dL Glucose 116 H (70-105) mg/dL Calcium 8.3 L (8.6-10.3) mg/dL Calcium panel 11/12/17 Range/Units 03:36 Calcium 8.3 L (8.6-10.3) mg/dL Pituitary panel 11/12/17 Range/Units 03:36 Sodium 133 L (136-145) mEq/L Potassium 3.0 L (3.5-5.1) mEq/L Chloride 101 (98-107) mEq/L Carbon Dioxide 28 (23-29) mEq/L BUN 13 (8-23) mg/dL Creatinine 0.40 L (0.60-1.20) mg/dL Glucose 116 H (70-105) mg/dL Calcium 8.3 L (8.6-10.3) mg/dL Adrenal panel 11/12/17 Range/Units 03:36 Sodium 133 L (136-145) mEq/L Potassium 3.0 L (3.5-5.1) mEq/L Chloride 101 (98-107) mEq/L Carbon Dioxide 28 (23-29) mEq/L BUN 13 (8-23) mg/dL Creatinine 0.40 L (0.60-1.20) mg/dL Glucose 116 H (70-105) mg/dL Calcium 8.3 L (8.6-10.3) mg/dL Consult Discharge Plan - Plan Referrals: Trevor Christopher MD [Primary Care Provider] - 11/18/17 3:30 pm (Please follow up as schedule..)
[2017-11-12] MEDS: Heparin 25,000 UNIT/500 ML D5W 25,000 UNIT/500 ML BAG IVC SCH (12:50)
--- NOTE | 2017-11-12 14:01 | Internal Med Progress Note ---
Hospitalist Progress Note - Encounter Date of Encounter: 11/12/17 Time of Encounter: 13:57 - Subjective Interval History: Patient was seen earlier today. Was lying in bed. Comfortable. Shortness of breath has slightly improved. Denies any pleuritic chest pain. No palpitations. No nausea or vomiting. No hematemesis or melena. - Exam Vitals: Temp Pulse Resp BP Pulse Ox 97.8 F 83 16 136/77 93 11/12/17 13:15 11/12/17 13:15 11/12/17 13:15 11/12/17 13:15 11/12/17 13:15 Exam: General: Patient is alert, no acute distress, oriented x 3 Respiratory: Diminished breath sounds at both bases. No wheezing or crackles. Cardiovascular: Regular rate and rhythm. s1 and s2 normal No clicks, rubs, gallops, or murmurs. No pedal edema Abdomen: Abdomen is soft, nontender. Bowel sounds are present Musculoskeletal: Spontaneously moving all extremities Skin: warm, dry, intact. Neuro: Alert oriented x 3 normal cranial nerves, no focal deficits - Assessment and Plan (1) Acute pulmonary embolism Current Visit: Yes Status: Acute Assessment and Plan: Patient with acute bilateral submassive pulmonary embolism. On intravenous heparin. High risk for complications. Continue O2 supplementation. 2-D echocardiogram shows normal ejection fraction but there is bowing of the IVS to the left and there is also interatrial right to left shunt by agitated saline contrast. She does have signs of R ventricular pressure overload. Currently on 2 L O2 supplementation. (2) Symptomatic anemia Current Visit: Yes Status: Acute Assessment and Plan: Hemoglobin 7.3 today. Discussed with surgery. We will continue to monitor blood counts and if it decreases further, will consider upper GI endoscopy and colonoscopy. For now we will continue conservative management. High risk for complications due to new PE and patient being on anticoagulation (3) Acute GI bleeding Current Visit: Yes Status: Suspected Assessment and Plan: No clear etiology has been found despite multiple recent endoscopies. As such patient is hesitant to undergo endoscopy again at this time. We will continue to monitor blood counts. Continue PPI. (4) DVT prophylaxis Current Visit: Yes Status: Acute Assessment and Plan: On IV heparin (5) Ovarian cancer Current Visit: Yes Status: Acute Assessment and Plan: History of ovarian cancer. Hematology oncology consulted for recommendations regarding anticoagulation and anemia. (6) Hyponatremia Current Visit: Yes Status: Acute Assessment and Plan: Stable. Sodium 133 today. (7) Rheumatoid arthritis Current Visit: Yes Status: Chronic Assessment and Plan: On leflunomide - Time Spent with Patient Total time spent is greater than 50% in coordination of care (as documented) at patient's floor/unit and/or counseling patient: Internal Medicine: Result - Labs CBC & Chem 7: 11/12/17 03:36 11/12/17 03:36 Labs: Short CBC 11/11/17 11/12/17 11/12/17 Range/Units 21:04 00:29 03:36 WBC 7.2 8.4 7.8 (4.3-11.1) K/mcL Hgb 8.0 L 8.1 L 7.3 L (11.5-15.4) g/dL Hct 26.6 L 25.5 L 23.0 L (35.3-44.9) % Plt Count 168 202 201 (140-400) K/mcL Neutrophils # 4.9 (1.6-8.9) K/mcL BMP 11/12/17 03:36 Sodium 133 L Potassium 3.0 L Chloride 101 Carbon Dioxide 28 BUN 13 Creatinine 0.40 L Glucose 116 H Calcium 8.3 L - ABG Interpretation ABG results: PT/INR, D-dimer PT 13.5 Seconds (9.4-12.1) H 11/11/17 12:16 - Impressions Impressions Echocardiogram 11/11/17 17:35 Impressions: LVEF 60-65%. Mild concentric left ventricular hypertrophy. Mild left ventricular diastolic dysfunction. Normal right ventricular size and function. The septum is D-shaped during systole suggesting RV pressure overload. Mild tricuspid regurgitation. Moderate pulmonary hypertension. The IVC is dilated. There is an interatrial right to left shunt by agitated saline contrast with bowing of the IAS to the left. Left Ventricular Wall Motion: Rest Echo Findings All wall segments showed normal motion. Findings: Study Quality * Technically adequate exam. ECG Findings * Sinus tachycardia. Left Ventricle * LVEF 60-65%. * Mild concentric left ventricular hypertrophy. * Mild left ventricular diastolic dysfunction. Right Ventricle * Normal right ventricular structure and function. Left Atrium * Mildly dilated left atrium. Right Atrium * Moderately dilated right atrium. Mitral Valve * Normal mitral valve structure. * No mitral stenosis. * No mitral regurgitation. Aortic Valve * No aortic regurgitation. * Trileaflet aortic valve. * No aortic stenosis. Tricuspid Valve * Tricuspid valve not well visualized. * Mild tricuspid regurgitation. * Estimated RA pressure is 20 mmHg. * Estimated RVSP is 54 mmHg. * Moderate pulmonary hypertension. Pulmonic Valve * Pulmonic valve is not well visualized. * No pulmonic stenosis. * Trace pulmonic regurgitation. Pulmonary Artery * Pulmonary artery not well visualized. Aorta * Normally sized aortic root. Pericardium * There is no pericardial effusion present. Interatrial Septum * There is a PFO by agitated saline contrast, IVC * < 50% respiratory change. * The IVC is dilated. Consult Discharge Plan - Plan Referrals: Trevor Christopher MD [Primary Care Provider] - 11/18/17 3:30 pm (Please follow up as schedule..) (1) Acute pulmonary embolism Qualifiers: Pulmonary embolism type: other Acute cor pulmonale presence: without acute cor pulmonale Qualified Code(s): I26.99 - Other pulmonary embolism without acute cor pulmonale (5) Ovarian cancer Qualifiers: Laterality: unspecified laterality Qualified Code(s): C56.9 - Malignant neoplasm of unspecified ovary (7) Rheumatoid arthritis Qualifiers: Rheumatoid arthritis location: unspecified site Rheumatoid factor presence: unspecified presence Qualified Code(s): M06.9 - Rheumatoid arthritis, unspecified
[2017-11-12] MEDS ORDERED: Gadolinium Contrast Agent (WT Based) IV PRN (17:18)
--- NOTE | 2017-11-12 19:50 | Oncology Inp Progress Note ---
<Modesta Brown L - Last Filed: 11/13/17 07:15> Date of Encounter: 11/12/17 Time of Encounter: 17:00 (1) Acute pulmonary embolism Current Visit: Yes Status: Acute Assessment and plan: CTA reveals multiple acute bilateral lobar and segmental PE Symptomatic with SOB on exertion, pain with inspiration, on oxymask 5L ( previously not on O2) Venous doppler-acute DVT in left posterior tibial Echo- LVEF 60-65%, does show evidence suggesting RV pressure overload, moderate pulmonary HTN and interatrial right to left shunt---suggesting high clot burden Plan: Continue heparin gtt for time being while continuing to trend hgb for stability given recent anemic episode Plan for AC at d/c TBD-likely plan for Eliquis Will discuss/consult rheumatology in AM in regards to plan for AC with continued RA medication Appreciate surgical consult recommendations in regards to endoscopy, plan to continue to trend hgb and alert for endoscopy if needed vs. tagged RBC scan for suspected acute bleed if needed Qualifiers: Pulmonary embolism type: other Acute cor pulmonale presence: without acute cor pulmonale Qualified Code(s): I26.99 - Other pulmonary embolism without acute cor pulmonale (2) Acute blood loss anemia Current Visit: Yes Status: Acute Assessment and plan: Patient presented with hgb 4.7 and iron deficiency suggestive of acute blood loss Evaluated by surgery on admission and secondary to multiple recent scopes which have been negative in past she declined endoscopic evaluation Hgb stable s/p IV iron and PRBC transfusion S/P venoder x2 Celiac testing-pending LDH, B12, Folae normal Abdiel negative Plan: Monitor CBC closely while on heparin and continue to trend-see plan for PE Continue PPI (3) Kidney cysts Current Visit: Yes Status: Acute Assessment and plan: CT abdomen/pelvis and CTA noted multiple low attenuation hepatic and renal lesions likely cysts along with a focal hyperdense nodule either abutting or arising from the left collecting system/ureter measuring 2.5 x 1.4 cm. Renal protocol MRI ordered for further assessment Oncology: Subj Interval history: Ms. Morataya states she has been out of bed more than yesterday, however, continues to get SOB with exertion. Her SOB is stable, maybe slightly improved. She is on 2L O2 per NC. She denies chest pain or hemoptysis. She denies any s/s occult bleeding. - Constitutional Vitals: Vital Signs Temp Pulse Resp BP Pulse Ox 11/12/17 19:04 99.5 F 99 15 129/81 95 11/12/17 15:39 98.1 F 99 18 119/81 93 11/12/17 13:15 97.8 F 83 16 136/77 93 11/12/17 06:42 97.4 F L 92 17 138/83 91 11/12/17 05:15 99.2 F 97 16 121/85 94 11/12/17 01:17 98.6 F 82 17 157/75 96 11/11/17 21:18 98.9 F 105 17 113/64 95 Intake and Output 11/12/17 11/12/17 11/12/17 07:59 15:59 23:59 Intake Total 1516 / 1516 203 / 203 Balance 1516 / 1516 203 / 203 Intake: IV Fluids 1516 / 1516 203 / 203 Heparin 25,000 UNIT/500 ML D5W 136 / 136 203 / 203 25,000 unit In 500 ml @ 14 UNIT /KG/HR 25.984 mls/hr IVC . [id number] [facility] Rx#:[id number] Venofer 400 MG In 0.9 % Sodium 270 / 270 Chloride 250 ML @ 120 mls/hr IVPB ONCE ONE Rx#:[id number] Other: # Voids 1 Weight 93.3 kg Patient Weight 11/12/17 23:59 Weight 93.3 kg General appearance: cooperative, no acute distress, no febrile - Head Head exam: Present: atraumatic - ENT ENT exam: Present: mucous membranes moist - Respiratory Respiratory exam: Present: CTAB. Absent: respiratory distress - Cardiovascular Cardiovascular exam: Present: RRR, +S1, +S2 - GI/Abdominal GI/Abdominal exam: Present: normal bowel sounds, soft. Absent: tenderness - Extremities Exam Extremities exam: Absent: calf tenderness Additional comments: BLE edema non pitting - Neurological Exam Neurological exam: Present: alert, oriented X3, no focal deficits, strengths equal and symetr throughout - Psychiatric Psychiatric exam: Present: normal affect, normal mood - Skin Skin exam: Present: dry, intact, normal color, warm Oncology: Obj Data - Labs CBC & Chem 7: 11/13/17 01:35 11/13/17 01:35 - Impressions Impressions Echocardiogram 11/11/17 17:35 Impressions: LVEF 60-65%. Mild concentric left ventricular hypertrophy. Mild left ventricular diastolic dysfunction. Normal right ventricular size and function. The septum is D-shaped during systole suggesting RV pressure overload. Mild tricuspid regurgitation. Moderate pulmonary hypertension. The IVC is dilated. There is an interatrial right to left shunt by agitated saline contrast with bowing of the IAS to the left. Left Ventricular Wall Motion: Rest Echo Findings All wall segments showed normal motion. Findings: Study Quality * Technically adequate exam. ECG Findings * Sinus tachycardia. Left Ventricle * LVEF 60-65%. * Mild concentric left ventricular hypertrophy. * Mild left ventricular diastolic dysfunction. Right Ventricle * Normal right ventricular structure and function. Left Atrium * Mildly dilated left atrium. Right Atrium * Moderately dilated right atrium. Mitral Valve * Normal mitral valve structure. * No mitral stenosis. * No mitral regurgitation. Aortic Valve * No aortic regurgitation. * Trileaflet aortic valve. * No aortic stenosis. Tricuspid Valve * Tricuspid valve not well visualized. * Mild tricuspid regurgitation. * Estimated RA pressure is 20 mmHg. * Estimated RVSP is 54 mmHg. * Moderate pulmonary hypertension. Pulmonic Valve * Pulmonic valve is not well visualized. * No pulmonic stenosis. * Trace pulmonic regurgitation. Pulmonary Artery * Pulmonary artery not well visualized. Aorta * Normally sized aortic root. Pericardium * There is no pericardial effusion present. Interatrial Septum * There is a PFO by agitated saline contrast, IVC * < 50% respiratory change. * The IVC is dilated. - ABG Interpretation ABG results: PT/INR, D-dimer PT 13.5 Seconds (9.4-12.1) H 11/11/17 12:16 Consult Discharge Plan - Plan Instructions: Apixaban (By mouth), Pulmonary Embolism (DC), Anemia (GEN) Referrals: Melissa Funes MD [Partnered Physician] - 11/18/17 1:00 pm (Please follow up as schedule...) Trevor Christopher MD [Primary Care Provider] - 11/18/17 3:30 pm (Please follow up as schedule..) Prescriptions: Apixaban [Eliquis] 5 mg PO BID #60 tablet Omeprazole [PriLOSEC] 40 mg PO BID #60 cap Inpatient Charges Provider: Dr. Jewell Capone <Abeba Capone S - Last Filed: 11/13/17 17:49> Date of Encounter: 11/12/17 - Constitutional Vitals: Vital Signs Temp Pulse Resp BP Pulse Ox 11/13/17 16:46 99 F 88 18 155/88 96 11/13/17 14:50 92 11/13/17 09:34 98.5 F 101 20 154/98 92 11/13/17 07:33 16 88 11/13/17 03:51 99 F 91 15 150/78 94 11/13/17 01:00 99.7 F H 90 16 132/78 93 11/12/17 19:54 18 95 11/12/17 19:45 95 11/12/17 19:04 99.5 F 99 15 129/81 95 Intake and Output 11/13/17 11/13/17 11/13/17 07:59 15:59 23:59 Intake Total 148 / 148 388.0 / 388.0 Balance 148 / 148 388.0 / 388.0 Intake: IV Fluids 148 / 148 148.0 / 148.0 Heparin 25,000 UNIT/500 ML D5W 148 / 148 148.0 / 148.0 25,000 unit In 500 ml @ 14 UNIT /KG/HR 25.984 mls/hr IVC . [id number] [facility] Rx#:[id number] Oral 240 / 240 Other: Meal Lunch Percent of Meal Consumed 40% # Voids 1 Weight 93.984 kg Patient Weight 11/13/17 23:59 Weight 93.984 kg Oncology: Obj Data - Labs CBC & Chem 7: 11/13/17 01:35 11/13/17 01:35 Labs: Laboratory Results - last 24 hr 11/12/17 11/13/17 11/13/17 19:55 01:35 01:35 WBC 6.9 RBC 3.19 L Hgb 8.0 L Hct 26.0 L MCV 81.5 L MCH 25.1 L MCHC 30.8 L RDW 20.4 H Plt Count 187 MPV 10.8 Immature Gran % 0.3 Seg Neutrophils % 57.4 Lymphocytes % 23.2 Monocytes % 11.0 Eosinophils % 7.2 Basophils % 0.9 Neutrophils # 4.0 Lymphocytes # 1.6 Monocytes # 0.8 Eosinophils # 0.5 Basophils # 0.1 Nucleated RBCs/100 WBC 0.3 H Platelet Estimate Normal Immature Plt Fraction 8.5 H Polychromasia 1+ A Hypochromasia Present A Poikilocytosis 1+ A Anisocytosis 1+ A Heparin Anti-Xa, Unfract 0.29 L Sodium 134 L Potassium 3.3 L Chloride 99 Carbon Dioxide 25 BUN 10 Creatinine 0.39 L Est GFR ( Amer) > 60 Est GFR (Non-Af Amer) > 60 BUN/Creatinine Ratio 26 Glucose 101 Calculated Osmolality 277 L Calcium 8.5 L 11/13/17 11/13/17 01:45 07:42 WBC RBC Hgb Hct MCV MCH MCHC RDW Plt Count MPV Immature Gran % Seg Neutrophils % Lymphocytes % Monocytes % Eosinophils % Basophils % Neutrophils # Lymphocytes # Monocytes # Eosinophils # Basophils # Nucleated RBCs/100 WBC Platelet Estimate Immature Plt Fraction Polychromasia Hypochromasia Poikilocytosis Anisocytosis Heparin Anti-Xa, Unfract 0.54 0.40 Sodium Potassium Chloride Carbon Dioxide BUN Creatinine Est GFR ( Amer) Est GFR (Non-Af Amer) BUN/Creatinine Ratio Glucose Calculated Osmolality Calcium - Impressions Impressions Abdomen MRI 11/13/17 17:18 IMPRESSION: 1. Limited evaluation the kidneys due to significant respiratory motion artifact. There is a 2.7 cm interpolar left renal lesion likely reflects a hemorrhagic or complex cyst (Bosniak 2 F). There may be a few other cystic similar appearing lesions in left kidney which are incompletely characterized on this study. Consider a short-term follow-up renal CT as the patient is unable to breath hold for MRI. 2. Indeterminate 1.4 x 1.1 cm right retrocrural lymph node. This is likely reactive. 3. Moderate to large hiatal hernia. D/ : / 11/13/2017 12:54:37 Alessandra Victoria MD / bcarter Interpreting Provider: Alessandra Victoria MD - ABG Interpretation ABG results: PT/INR, D-dimer PT 13.5 Seconds (9.4-12.1) H 11/11/17 12:16 Inpatient Charges Provider: Dr. Jewell Capone Follow Up: [id number] - Attending Attestation I examined this patient and my medical decision-making was reviewed with the Advanced Practice Nurse. I agree with the documented findings, disposition and treatment plan as described except to the extent set forth below. 1. Acute PE/DVT She needs anticoagulation. Recommend low-dose Elequis 2.5 mg by mouth twice a day She was on leflunomide for rheumatoid arthritis which is on hold Recommend consult to hematology to make sure there is no contraindication for anticoagulation. Patient was concerned about bleeding risk with Xarelto on leflunomide. I am not sure if there is any interaction with the newer anticoagulant leflunomide. Coumadin can interfere with leflunomide 2. Significant iron deficiency anemia improved with packed RBC transfusion in IV iron. She had GI workup in the past no evidence of bleeding. Current hemoglobin 8 and stable. Celiac workup pending
[2017-11-12] MEDS: Beclomethasone 80mcg MDI IH SCH (19:54)
[2017-11-13 02:33] LABS: Basophils # 0.1 K/mcL (0.0-0.2); Basophils % 0.9 %; Eosinophils # 0.5 K/mcL (0.0-0.6); Eosinophils % 7.2 %; Immature Granulocytes % 0.3 % (0-4); Immature Platelets 8.5 % (1.1-6.1); Lymphocytes # 1.6 K/mcL (0.6-4.6); Lymphocytes % 23.2 %; Mean Corpuscular HGB Conc 30.8 g/dL (31.6-35.5); Mean Corpuscular Hemoglobin 25.1 pg (28.0-33.3); Mean Corpuscular Volume 81.5 fL (83.0-100.0); Mean Platelet Volume 10.8 fL (9.4-12.4); Monocytes # 0.8 K/mcL (0.0-1.3); Nucleated Red Blood Cells 0.3 /100 WBC (0); Platelet Count 187 K/mcL (140-400); Red Blood Count 3.19 M/mcL (3.82-4.97); Red Cell Distribution Width 20.4 % (11.5-14.5); Segmented Neutrophils % 57.4 %
[2017-11-13 02:56] LABS: Hypochromasia Present (Not Present)
[2017-11-13 02:57] LABS: Anisocytosis 1+ (Not Present); Poikilocytosis 1+ (Not Present); Polychromasia 1+ (Not Present)
[2017-11-13 02:58] LABS: Platelet Estimate Normal (Normal)
[2017-11-13 03:11] LABS: BUN/Creatinine Ratio 26 (6-26); Blood Urea Nitrogen 10 mg/dL (8-23); Calcium 8.5 mg/dL (8.6-10.3); Carbon Dioxide 25 mEq/L (23-29); Chloride 99 mEq/L (98-107); Glucose 101 mg/dL (70-105); Osmolality,Calculated 277 (280-300); Potassium 3.3 mEq/L (3.5-5.1); Sodium 134 mEq/L (136-145); eGFR For Non-African Americans > 60 (> 60)
[2017-11-13] MEDS: Pantoprazole 40 MG VIAL IVP SCH (05:10)
[2017-11-13] MEDS: Beclomethasone 80mcg MDI IH SCH (07:32)
[2017-11-13] MEDS: Fluticasone Propionate Nasal 50 MCG/SPRAY BOTTLE NS SCH (08:57)
[2017-11-13] MEDS ORDERED: LEFLUNOMIDE 10 MG PO SCH (09:00)
[2017-11-13] MEDS: Heparin 25,000 UNIT/500 ML D5W 25,000 UNIT/500 ML BAG IVC SCH (12:15)
--- NOTE | 2017-11-13 14:31 | Discharge Summary ---
- NOTES TO OUTPATIENT PROVIDER Notes to Outpatient Provider: Patient was initially hospitalized for melena and anemia. Her hemoglobin was 4.4 when she initially arrived to the ER. She has had chronic anemia and has had multiple GI endoscopies with no clear source of bleeding identified. As such patient received 4 units of packed red blood cells and since then her hemoglobin levels have been stable around 7-8. Unfortunately the patient also developed acute bilateral pulmonary embolism. She had previously been on Xarelto which was stopped as outpatient due to anemia. Hematology evaluated patient and recommended Eliquis. This has been clarified to be okay to use along with her leflunomide that she takes for rheumatoid arthritis. Surgery was involved in her care and patient did not want to undergo repeat EGD and colonoscopy at this time given her previously normal results. As her hemoglobin levels have remained stable, she is stable to be discharged home. However she will need close follow-up of her hemoglobin levels in conjunction with hematology as outpatient. Orders not resulted at time of discharge: Pending orders 11/13/17 01:35 Tissue Transglutaminase Ab,IgA AM 0400 11/14/17 07:45 Heparin anti-factor XA UFH [COAG] Timed Date of Encounter: 11/13/17 Time of Encounter: 14:28 - Discharge Diagnosis (1) Symptomatic anemia Priority: Primary Status: Acute (2) Acute GI bleeding Priority: Secondary Status: Suspected (3) Acute pulmonary embolism Priority: Secondary Status: Acute Qualifiers: Pulmonary embolism type: other Acute cor pulmonale presence: without acute cor pulmonale Qualified Code(s): I26.99 - Other pulmonary embolism without acute cor pulmonale (4) Acute respiratory failure with hypoxia Priority: Secondary Status: Acute (5) DVT prophylaxis Priority: Secondary Status: Acute (6) Ovarian cancer Priority: Secondary Status: Acute Qualifiers: Laterality: unspecified laterality Qualified Code(s): C56.9 - Malignant neoplasm of unspecified ovary (7) Hyponatremia Priority: Secondary Status: Acute (8) Rheumatoid arthritis Priority: Secondary Status: Chronic Qualifiers: Rheumatoid arthritis location: unspecified site Rheumatoid factor presence : unspecified presence Qualified Code(s): M06.9 - Rheumatoid arthritis, unspecified Hospital course: Ms. Morataya is a 62 year old female Patient with history of rheumatoid arthritis , ovarian cancer, chronic anemia, who was initially hospitalized for melena and anemia. Her hemoglobin was 4.4 when she initially arrived to the ER. She has had chronic anemia and has had multiple GI endoscopies with no clear source of bleeding identified. As such patient received 4 units of packed red blood cells and since then her hemoglobin levels have been stable around 7-8. Unfortunately the patient also developed acute bilateral pulmonary embolism. She had previously been on Xarelto which was stopped as outpatient due to anemia. Hematology evaluated patient and recommended Eliquis. This has been clarified to be okay to use along with her leflunomide that she takes for rheumatoid arthritis. Surgery was involved in her care and patient did not want to undergo repeat EGD and colonoscopy at this time given her previously normal results. As her hemoglobin levels have remained stable, she is stable to be discharged home. However she will need close follow-up of her hemoglobin levels in conjunction with hematology as outpatient. Patient has been hypoxic several occasions she had her pulmonary embolism and would benefit from home oxygen. She was evaluated by me [id number] today. She has been qualified for 2 L home oxygen and will be provided with prescription for the same. emergency worker will make arrangements for this prior to discharge. Discharge discussed with: patient, family, nurse, biztalk consultant - Time Spent with Patient Total time spent providing and/or coordinating discharge services: Greater than 30 minutes (45 min) - Discharge Medications Prescriptions: Apixaban [Eliquis] 5 mg PO BID #60 tablet Omeprazole [PriLOSEC] 40 mg PO BID #60 cap Home Medications: Ascorbic Acid [Vitamin C] 1,000 mg PO DAILY 06/10/15 [History] Beclomethasone Diprop 80mcg [QVAR 80 mcg] 2 puff IH DAILY 06/10/15 [History] Calcium Carbonate/Vitamin D3 [Calcium 500 + D Tablet] 2 tab PO DAILY 06/10/15 [ History] Cholecalciferol (Vitamin D3) [Vitamin D3] 4,000 unit PO DAILY 06/10/15 [History] Pediatric Multivitamin Comb#30 [Gummies Children Multivitamin] 1 each PO DAILY 06/10/15 [History] Fexofenadine/Pseudoephedrine [Annia-D 24 Hour Tablet] 1 tab PO DAILY 12/16/15 [History] Fluticasone Propionate Nasal [Flonase] 1 spr NS DAILY 10/21/16 [History] Leflunomide [Arava] 10 mg PO QDPC 10/08/16 [History] Apixaban [Eliquis] 5 mg PO BID #60 tablet 11/13/17 [Rx] Omeprazole [PriLOSEC] 40 mg PO BID #60 cap 11/13/17 [Rx] Allergies/Adverse Reactions: 3 Allergy/AdvReac Type Severity Reaction Status Date / Time ciprofloxacin [From Cipro] Allergy Rash Verified 12/03/16 09:45 levofloxacin [From Levaquin] Allergy Palpitation Verified 12/03/16 09:45 s Date of admission: 11/08/17 13:41 Primary care physician: Trevor Christopher MD Consults: 11/11/17 13:01 Consult to Oncology Hematology [CONS] Routine Consulting Provider: Modesta Brown Reason for Consult: acute PE with hx of PE, severe iron def anemia Call Completed: Yes Discharging clinician: Palma Rich Anticipated date of discharge: 11/13/17 - Constitutional Vitals: Temp Pulse Resp BP Pulse Ox 98.5 F 101 20 154/98 92 11/13/17 09:34 11/13/17 09:34 11/13/17 09:34 11/13/17 09:34 11/13/17 09:34 Exam: General: Patient is alert, no acute distress, oriented x 3 Respiratory: Good respiratory effort. Normal breath sounds. No wheezing or crackles. Cardiovascular: Regular rate and rhythm. s1 and s2 normal No clicks, rubs, gallops, or murmurs. No pedal edema Abdomen: Abdomen is soft, nontender. Bowel sounds are present Musculoskeletal: Spontaneously moving all extremities Skin:Pallor, warm, dry, intact. Neuro: Alert oriented x 3 normal cranial nerves, no focal deficits - Patient Status Disposition: Home, Self-Care Condition: Good Functional capacity at discharge: independent ambulation Overall status at discharge: patient is progressing back to baseline - Discharge Instructions Instructions: Pulmonary Embolism (DC), Anemia (GEN) Follow Up With: Melissa Funes MD [Partnered Physician] - 11/18/17 1:00 pm (Please follow up as schedule...) Trevor Christopher MD [Primary Care Provider] - 11/18/17 3:30 pm (Please follow up as schedule..) - Diet and Activity Activity: increase activity as tolerated Diet: advance to your usual diet
[2017-11-13 16:52] VITALS: BP 155/88
[2017-11-13] MEDS ORDERED: Apixaban 5 MG TABLET PO STA (17:10)
[2017-11-15 08:08] LABS: Tissue Transglutaminase IgA 0 U/mL (0-3)
== END 2017-11-13 17:50 | disposition home or self-care (01) | DRG 377 ==
LOC: EMEROOARM 10:09 → 2ANU 13:41 → SUATTDRO 13:41 → 2ANU 14:28
PROVIDERS: ADMIT Student in an Organized Health Care Education/Training Program; ATTEND Internal Medicine